=== PATIENT | female | born 1950 | race Caucasian/White ===

== ENCOUNTER → 2016-07-10 | Outpatient (CLI) | payer MEDICARE, BC ==
--- NOTE | 2016-07-10 12:27 | EST ---
DATE OF SERVICE: 07/10/2016 AGE: 65Y SEX: F HT: 60 WT: 180 lbs. Protocol Isaías: X Other: Stage: III Dur. of Exercise: 7 minutes *Heart Rate Blood Pressure *Rest: 90 Rest: 132/82 * *Max. Achieved: 130 Maximum BP: 172/82 85% PMHR: 130 100% PMHR: 153 *METS: 8.1 INDICATIONS: Palpitation. MEDICATIONS: Lisinopril, Zocor, Synthroid. Patient was exercised for a total period of 7 minutes. A peak heart rate of 130 was achieved. Maximum blood pressure of 172/82 mmHg was noted. Resting EKG shows normal sinus rhythm with normal NE interval and QRS duration and normal ST-T waves. No ST segment depression suggestive of ischemia is noted. No dysrhythmias are noted. The patient did not complain of any chest pain during the test. FINAL IMPRESSION: 1. This exercise test is not suggestive of ischemia. 2. Patient's exercise tolerance is normal. 3. No dysrhythmias were noted.
== END | disposition home or self-care (01) ==
LOC: RADNMMAIN 10:55
PROVIDERS: ATTEND Internal Medicine Cardiovascular Disease
DX: I49.40 Unspecified premature depolarization (principal)
CPT/HCPCS: 93017

== ENCOUNTER → 2016-08-30 | Outpatient (CLI) | payer MEDICARE, BC ==
[2016-08-30 10:41] LABS: ALT 39 U/L (9-52); AST 40 U/L (14-36); Alkaline Phosphatase 103 U/L (38-126); Anion Gap 9 mmol/L; Blood Urea Nitrogen 10 mg/dL (7-17); Calcium 9.5 mg/dL (8.4-10.2); Carbon Dioxide 25 mmol/L (22-30); Chloride 108 mmol/L (98-107); Cholesterol 136 mg/dL (<200); Glucose 155 mg/dL (74-99); HDL Cholesterol 49 mg/dL (40-60); Non-African American GFR(MDRD) >60 (>60 ml/min/1.73 sqM); Potassium 4.3 mmol/L (3.5-5.1); Sodium 142 mmol/L (137-145); Total Bilirubin 0.9 mg/dL (0.2-1.3); Total Protein 6.9 g/dL (6.3-8.2); Triglycerides 114 mg/dL (<150)
== END | disposition home or self-care (01) ==
LOC: LABWHC1 09:57
PROVIDERS: ATTEND Internal Medicine Endocrinology, Diabetes & Metabolism
DX: E78.5 Hyperlipidemia, unspecified (principal); E66.9 Obesity, unspecified; I10 Essential (primary) hypertension; E11.65 Type 2 diabetes mellitus with hyperglycemia; Z68.37 Body mass index [BMI] 37.0-37.9, adult
CPT/HCPCS: 36415; 80053; 80061; 82043; 84443

== ENCOUNTER → 2017-02-19 | Outpatient (CLI) | payer MEDICARE, BC ==
--- NOTE | 2017-02-24 08:38 | MM ---
Reason for exam: screening (asymptomatic). Last mammogram was performed 2 years ago. History: Patient is postmenopausal. Family history of breast cancer in maternal grandmother at age 56. Benign left mammotome panel of the left breast, January 04, 2013. Reductions of both breasts, 2000. Physical Findings: A clinical breast exam by your physician is recommended on an annual basis and results should be correlated with mammographic findings. MG 3D Screening Mammo W/Cad Bilateral CC and MLO view(s) were taken. Prior study comparison: February 27, 2016, mammogram. February 09, 2015, bilateral MG 3d screening mammo w/cad. January 21, 2014, bilateral MG screening mammo w CAD. There are scattered fibroglandular densities. Previous mammotome biopsy within the left breast. There is chronic nodularity in the right breast. No significant changes when compared with prior studies. ASSESSMENT: Negative, BI-RAD 1 RECOMMENDATION: Routine screening mammogram of both breasts in 1 year.
== END | disposition home or self-care (01) ==
LOC: RADMAMWWP 15:38
PROVIDERS: ATTEND Internal Medicine
DX: Z12.31 Encounter for screening mammogram for malignant neoplasm of breast (principal)
CPT/HCPCS: 77063; G0202

== ENCOUNTER → 2017-05-01 | Outpatient (CLI) | payer MEDICARE, BC ==
[2017-05-01 10:57] LABS: Basophils # (A) 0.1 k/uL (0-0.2); Basophils % (A) 1 %; Eosinophils # (A) 0.3 k/uL (0-0.7); Eosinophils % (A) 5 %; HCT 43.6 % (34.0-46.0); HGB 14.1 gm/dL (11.4-16.0); Lymphocytes # (A) 1.8 k/uL (1.0-4.8); Lymphocytes % (A) 29 %; MCH 28.1 pg (25.0-35.0); MCHC 32.3 g/dL (31.0-37.0); Mean Platelet Volume 6.7; Monocytes # (A) 0.3 k/uL (0-1.0); Monocytes % (A) 5 %; Neutrophils # (A) 3.6 k/uL (1.3-7.7); Neutrophils % (A) 59 %; Platelet Count 255 k/uL (150-450); RBC 5.01 m/uL (3.80-5.40); RDW 12.3 % (11.5-15.5); WBC 6.1 k/uL (3.8-10.6)
[2017-05-01 11:04] LABS: Appearance,Urine Cloudy (Clear); Bacteria,Urine Rare /hpf; Bilirubin,Urine Negative (Negative); Blood,Urine Negative (Negative); Color,Urine Yellow; Glucose,Urine (UA) Negative (Negative); Ketones,Urine Negative (Negative); Leukocyte Esterase,Urine Moderate (Negative); Mucus,Urine Moderate /hpf; Nitrite,Urine Negative (Negative); Protein,Urine Trace (Negative); RBC,Urine 3 /hpf (0-5); Specific Gravity,Urine 1.023 (1.001-1.035); Squamous Epithelial Cell,Urine 5 /hpf (0-4); WBC,Urine 3 /hpf (0-5)
[2017-05-01 11:07] LABS: ALT 34 U/L (9-52); AST 32 U/L (14-36); Albumin 4.2 g/dL (3.5-5.0); Alkaline Phosphatase 94 U/L (38-126); Anion Gap 11 mmol/L; Blood Urea Nitrogen 19 mg/dL (7-17); Carbon Dioxide 30 mmol/L (22-30); Chloride 104 mmol/L (98-107); Cholesterol 153 mg/dL (<200); Creatine Kinase 25 U/L (30-135); Glucose 174 mg/dL (74-99); HDL Cholesterol 64 mg/dL (40-60); LDL Cholesterol,Calculated 69 mg/dL (0-99); Magnesium 2.2 mg/dL (1.6-2.3); Potassium 5.5 mmol/L (3.5-5.1); Sodium 145 mmol/L (137-145); Total Bilirubin 0.5 mg/dL (0.2-1.3); Total Protein 6.9 g/dL (6.3-8.2); Triglycerides 100 mg/dL (<150); Uric Acid 6.4 mg/dL (3.7-7.4)
[2017-05-01 20:47] LABS: Hemoglobin A1C 5.9 % (4.0-6.0)
== END | disposition home or self-care (01) ==
LOC: LABWHC1 10:33
PROVIDERS: ATTEND Internal Medicine Endocrinology, Diabetes & Metabolism
DX: E78.5 Hyperlipidemia, unspecified (principal); M85.80 Other specified disorders of bone density and structure, unspecified site; I10 Essential (primary) hypertension; E11.65 Type 2 diabetes mellitus with hyperglycemia; E03.8 Other specified hypothyroidism
CPT/HCPCS: 36415; 80053; 80061; 81001; 82043; 82306; 82550; 82570; 83036; 83735; 84439; 84443; 84550; 85025

== ENCOUNTER → 2017-06-18 | Outpatient (CLI) | payer MEDICARE, BC ==
--- NOTE | 2017-06-18 10:02 | US ---
EXAMINATION TYPE: US thyroid st tissue head/neck DATE OF EXAM: 06/18/2017 COMPARISON: US 01/18/2016 CLINICAL HISTORY: E04.2 Multinodular Goiter Non Toxic. GLAND SIZE: Right Lobe: 5.7 x 4.3 x 1.7 cm Overall Parenchyma: heterogenous Left Lobe: 4.3 x 4.2 x 1.5 cm Overall Parenchyma: heterogeneous Isthmus Thickness: 0.5 cm NODULES RIGHT: # of nodules measured on right: 3 1. 0.9 X 0.5 x 0.7 cm hypoechoic solid nodule at the lower pole with well-defined margins; . This nodule is wider than tall and shows intranodular vascularity. Prior size: 0.9 x 0.5 x 0.7 cm 2. 0.5 X 0.4 x 0.6 cm hypoechoic solid nodule at the mid pole with well-defined margins; . This nod ule is wider than tall and shows intranodular vascularity. Prior size: 0.6 x 0.5 x 0.5 cm 3. 0.4 X 0.2 x 0.4 cm hypoechoic mixed nodule at the upper pole with well-defined margins; . This n odule is wider than tall and shows no intranodular vascularity. Prior size: 0.7 x 0.6 x 0.3 cm LEFT: # of nodules measured on left: 3 1. 0.7 X 0.5 x 0.6 cm hypoechoic solid nodule at the mid pole with well-defined margins; . This no dule is wider than tall and shows intranodular vascularity. Prior size: 0.6 x 0.6 x 0.5 cm 2. 0.7 X 0.5 x 0.5 cm hypoechoic mixed nodule at the upper pole with well-defined margins; . This n odule is wider than tall and shows intranodular vascularity. Prior size: 0.7 x 0.6 x 0.5 cm 3. 0.5 X 0.5 x 0.5 cm hypoechoic solid nodule at the lower pole with well-defined margins; . This n odule is wider than tall and shows intranodular vascularity. Prior size: Not previously visualized ISTHMUS: # of nodules measured in the isthmus: 1 1. 0.6 X 0.3 x 0.6 cm hypoechoic cystic nodule at the lower pole with well-defined margins; . This nodule is wider than tall and shows no intranodular vascularity. Prior size: 0.4 x 0.3x 0.7 cm Bilateral neck scanned, no evidence of lymphadenopathy. IMPRESSION: Stability in size of multiple bilateral subcentimeter thyroid nodules in a multinodular enlarged thyr oid goiter with solitary new 5 mm left thyroid nodule identified. Continued surveillance is recommend ed.
== END | disposition home or self-care (01) ==
LOC: RADUSWWP 08:00
PROVIDERS: ATTEND Internal Medicine Endocrinology, Diabetes & Metabolism
DX: E04.2 Nontoxic multinodular goiter (principal)
CPT/HCPCS: 76536

== ENCOUNTER → 2017-07-28 | Outpatient (CLI) | payer MEDICARE, BC ==
--- NOTE | 2017-07-28 10:17 | XR ---
EXAMINATION TYPE: XR chest 2V DATE OF EXAM: 07/28/2017 COMPARISON: NONE HISTORY: Cough and congestion. History of asthma. TECHNIQUE: Frontal and lateral views of the chest are obtained. FINDINGS: There is no focal air space opacity, pleural effusion, or pneumothorax seen. The cardiac silhouette size is within normal limits. The osseous structures are intact. Mild acromio clavicular arthropathy is noted. Minimal degenerative changes of the thoracic spine are seen. IMPRESSION: No acute cardiopulmonary process.
== END | disposition home or self-care (01) ==
LOC: RADXRMAIN 09:48
PROVIDERS: ATTEND Internal Medicine
DX: R05 Cough (principal)
CPT/HCPCS: 71046

== ENCOUNTER → 2017-10-13 | Outpatient (CLI) | payer MEDICARE, BC ==
--- NOTE | 2017-10-13 16:01 | XR ---
EXAMINATION TYPE: XR Hip Complete LT DATE OF EXAM: 10/13/2017 COMPARISON: NONE HISTORY: 66 year-old female left hip pain TECHNIQUE: 2 views FINDINGS: Mild degenerative spurring at the left hip. Joint spaces relatively maintained. No acute fracture, woodruff bluxation, or dislocation seen. IMPRESSION: Mild degenerative spurring at the left hip. No acute osseous abnormality seen.
== END | disposition home or self-care (01) ==
LOC: RADXRMAIN 15:07
PROVIDERS: ATTEND Internal Medicine Geriatric Medicine
DX: M76.9 Unspecified enthesopathy, lower limb, excluding foot (principal)
CPT/HCPCS: 73502

== ENCOUNTER → 2017-11-11 | Outpatient (CLI) | payer MEDICARE, BC ==
[2017-11-11 11:45] LABS: ALT 32 U/L (9-52); AST 26 U/L (14-36); Albumin 4.1 g/dL (3.5-5.0); Alkaline Phosphatase 77 U/L (38-126); Anion Gap 4 mmol/L; Blood Urea Nitrogen 14 mg/dL (7-17); Calcium 9.5 mg/dL (8.4-10.2); Carbon Dioxide 29 mmol/L (22-30); Chloride 108 mmol/L (98-107); Cholesterol 148 mg/dL (<200); Glucose 145 mg/dL (74-99); HDL Cholesterol 54 mg/dL (40-60); LDL Cholesterol,Calculated 64 mg/dL (0-99); Potassium 4.8 mmol/L (3.5-5.1); Sodium 141 mmol/L (137-145); Total Bilirubin 0.6 mg/dL (0.2-1.3); Total Protein 6.6 g/dL (6.3-8.2); Triglycerides 150 mg/dL (<150)
== END | disposition home or self-care (01) ==
LOC: LABWHC1 10:43
PROVIDERS: ATTEND Internal Medicine Endocrinology, Diabetes & Metabolism
DX: E11.65 Type 2 diabetes mellitus with hyperglycemia (principal)
CPT/HCPCS: 36415; 80053; 80061; 82043; 82570; 83036; 84443

== ENCOUNTER → 2017-12-11 | Outpatient (CLI) | payer MEDICARE, BC ==
--- NOTE | 2017-12-11 15:48 | US ---
EXAMINATION TYPE: US kidneys/renal and bladder DATE OF EXAM: 12/11/2017 COMPARISON: NONE CLINICAL HISTORY: R80.9 Albuminemia. UTI EXAM MEASUREMENTS: Right Kidney: 9.2 x4.2 x 4.3 cm Left Kidney: 9.3 x 4.4 x 4.6 cm Post Void Residual Volume: 6.4 mL Right Kidney: No hydronephrosis or masses seen possible calculi mid Left Kidney: No hydronephrosis or masses seen possible calculi mid Bladder: wnl Bilateral Jets seen: Yes Normal Post Void Residual: Yes There is no evidence for hydronephrosis at this point in time. Technologist chao do not shadowing hy perechoic foci bilaterally could reflect small nonobstructing renal calculi. No masses are identifie d. The urinary bladder is anechoic. Bilateral ureteral jets are seen. IMPRESSION: Cannot exclude small nonobstructing renal calculi bilaterally. No hydronephrosis is evident bilateral ly.
== END | disposition home or self-care (01) ==
LOC: RADUSWWP 15:11
PROVIDERS: ATTEND Internal Medicine
DX: R80.9 Proteinuria, unspecified (principal)
CPT/HCPCS: 76770

== ENCOUNTER → 2018-04-06 | Outpatient (CLI) | payer MEDICARE, BC ==
--- NOTE | 2018-04-06 08:00 | BD ---
EXAMINATION TYPE: Axial Bone Density DATE OF EXAM: 04/06/2018 CLINICAL HISTORY: Height: 60 inches Weight: 180 FRAX RISK QUESTIONS: Alcohol (3 or more units per day): no Family History (Parent hip fracture): no Glucocorticoids (More than 3mos): no (Ex: prednisone, prednisolone, methylprednisolone, dexamethasone, and hydrocortisone). History of Fracture in Adulthood: toe Secondary Osteoporosis: 1. Type 1 Diabetes: no 2. Hyperthyroidism: no 3. Menopause before 45: no 4. Malnutrition: no 5. Chronic liver disease: no Rheumatoid Arthritis: no Current Tobacco Use: no RISK FACTORS HISTORY OF: Family History of Osteoporosis: yes, mother Active: yes Diet low in dairy products/other sources of calcium: somewhat, servings a few times a week Postmenopausal woman: yes Take estrogen and/or progesterone medications: no Lost more than 2 inches in height since high school: no Frequent falls: no Poor Health: no Hyperparathyroidism: no Adrenal Insufficiency: no MEDICATIONS: Prednisone or other steroids: inhaler which patient rarely uses Thyroid Medications: yes Which medication: Synthroid How Long: about 5 years Osteoporosis Medications: no Additional Medications: blood pressures meds Additional History: type II diabetic-under control, no meds for this; goiters' EXAM MEASUREMENTS: Bone mineral densitometry was performed using the centrose System. Bone mineral density as measured about the Lumbar spine is: ----- L1-L4(G/cm2): 1.000 T Score Values are as follows: ----- L2: -2.0 ----- L3: -1.0 ----- L4: -1.1 ----- L1-L4: -1.5 Bone mineral density not previously done at this facility; previously done in physician office Bone mineral density about the R hip (g/cm2): 0.806 Bone mineral density about the L hip (g/cm2): 0.807 T Score values are as follows: -----R Neck: -1.7 -----L Neck: -1.7 -----R Total: -0.9 -----L Total: -0.6 Bone mineral density not previously done at this facility; previously done in physician office IMPRESSION: Osteopenia (T Score between -2.5 and -1) in the low back and both hips. There is slightly increased risk of fracture and the patient may be considered for treatment. Re-Screen 2-5 years. NOTE: T-SCORE=SD OF THE YOUNG ADULT MEAN.
--- NOTE | 2018-04-06 08:55 | XR ---
EXAMINATION TYPE: XR knee complete RT DATE OF EXAM: 04/06/2018 CLINICAL HISTORY: Right knee pain. TECHNIQUE: Three views of the right knee are obtained. COMPARISON: None. FINDINGS: There is no acute fracture/dislocation evident in right knee. There is mild to moderate na rrowing patellofemoral and medial tibiofemoral compartments with mild spurring. There is additional prominent spurring anterior superior patella at distal quadriceps tendon attachment. The overlying so ft tissue appears unremarkable. IMPRESSION: As above.
--- NOTE | 2018-04-06 10:38 | US ---
EXAMINATION TYPE: US thyroid st tissue head/neck DATE OF EXAM: 04/06/2018 COMPARISON: Thyroid ultrasound June 18, 2017. CLINICAL HISTORY: E04.2 MULTI GOITER NODULE. Follow up nodules. On thyroid medications. GLAND SIZE: Right Lobe: 4.4 x 1.9 x 2.0 cm Overall Parenchyma: heterogenous Left Lobe: 4.0 x 1.6 x 1.5 cm Overall Parenchyma: heterogeneous Isthmus Thickness: 0.4 cm NODULES RIGHT: # of nodules measured on right: 3 1. 0.8 X 0.7 x 0.5 cm hypoechoic solid nodule at the lower pole with well-defined margins. This no dule is wider than tall and shows intranodular vascularity. Prior size: 0.9 x 0.5 x 0.7 cm 2. 0.5 X 0.5 x 0.6 cm hypoechoic solid nodule at the mid pole with well-defined margins. This nodul e is taller than wide and shows intranodular vascularity. Prior size: 0.6 x 0.5 x 0.5 cm 3. 0.4 X 0.3 x 0.4 cm hypoechoic mixed nodule at the upper pole with well-defined margins. This nod ule is taller than wide and shows intranodular vascularity. Prior size: 0.4 x 0.2 x 0.4 cm LEFT: # of nodules measured on left: 3 1. 0.7 X 0.5 x 0.5 cm hypoechoic solid nodule at the mid pole with well-defined margins. This nodu le is wider than tall and shows intranodular vascularity. Prior size: 0.7 x 0.5 x 0.6 cm 2. 0.7 X 0.6 x 0.5 cm hypoechoic solid nodule at the upper pole with well-defined margins. This nod ule is wider than tall and shows intranodular vascularity. Prior size: 0.7 x 0.6 x 0.5 cm 3. 0.5 X 0.4 x 0.3 cm hypoechoic solid nodule at the lower pole with well-defined margins. This nod ule is wider than tall and shows no intranodular vascularity. Prior size: 0.5 x 0.5 x 0.5 cm ISTHMUS: # of nodules measured in the isthmus: 1 1. 0.6 X 0.5 x 0.3 cm hypoechoic solid nodule at the right lateral pole with well-defined margins. This nodule is wider than tall and shows no intranodular vascularity. Prior size: 0.4 x 0.3 x 0.7 cm Bilateral neck scanned, no evidence of lymphadenopathy. Redemonstration of heterogeneous normal-sized thyroid with scattered small nodules bilaterally. IMPRESSION: Overall stable findings, no new greater than 1 cm nodules identified. Findings consistent with multin odular goiter redemonstrated.
[2018-04-06 12:15] LABS: ALT 25 U/L (9-52); AST 24 U/L (14-36); Albumin 4.2 g/dL (3.5-5.0); Alkaline Phosphatase 73 U/L (38-126); Anion Gap 5 mmol/L; Blood Urea Nitrogen 16 mg/dL (7-17); Calcium 10.7 mg/dL (8.4-10.2); Carbon Dioxide 30 mmol/L (22-30); Chloride 106 mmol/L (98-107); Glucose 129 mg/dL (74-99); Potassium 4.3 mmol/L (3.5-5.1); Sodium 141 mmol/L (137-145); Total Bilirubin 0.6 mg/dL (0.2-1.3); Total Protein 7.1 g/dL (6.3-8.2)
[2018-04-06 22:42] LABS: Hemoglobin A1C 6.1 % (4.0-6.0)
--- NOTE | 2018-04-12 09:27 | MM ---
Reason for exam: screening (asymptomatic). Last mammogram was performed 1 year and 1 month ago. History: Patient is postmenopausal. Family history of breast cancer in maternal grandmother at age 56. Benign left mammotome panel of the left breast, January 04, 2013. Reductions of both breasts, 2000. MG 3D Screening Mammo W/Cad Bilateral CC and MLO view(s) were taken. Prior study comparison: February 19, 2017, bilateral MG 3d screening mammo w/cad. February 27, 2016, mammogram. There are scattered fibroglandular densities. Previous mammotome biopsy left breast. No significant changes when compared with prior studies. ASSESSMENT: Benign, BI-RAD 2 RECOMMENDATION: Routine screening mammogram of both breasts in 1 year.
== END | disposition home or self-care (01) ==
LOC: RADMAMWWP 06:52
PROVIDERS: ATTEND Internal Medicine
DX: Z12.31 Encounter for screening mammogram for malignant neoplasm of breast (principal); M85.851 Other specified disorders of bone density and structure, right thigh; M85.852 Other specified disorders of bone density and structure, left thigh; M85.88 Other specified disorders of bone density and structure, other site; E04.2 Nontoxic multinodular goiter; M17.11 Unilateral primary osteoarthritis, right knee; E11.9 Type 2 diabetes mellitus without complications
CPT/HCPCS: 36415; 76536; 77063; 77067; 77080; 80053; 82043; 82570; 83036; 84443

== ENCOUNTER → 2018-04-13 | Outpatient (CLI) | payer MEDICARE, BC ==
[2018-04-13 19:56] LABS: Albumin 4.3 g/dL (3.80-4.90); Albumin/Globulin Ratio 2.05 (1.20-2.10); Anion Gap 7.4 mmol/L (4.00-12.00); Carbon Dioxide 27.6 mmol/L (21.6-31.8); Globulin 2.1 g/dL (1.6-3.3); Potassium 4.3 mmol/L (3.5-5.5); Total Bilirubin 0.5 mg/dL (0.2-1.2); Total Protein 6.4 g/dL (6.2-8.2)
[2018-04-13 20:11] LABS: Parathyroid Hormone Intact 58.2 pg/mL (14.0-72.0)
== END | disposition home or self-care (01) ==
LOC: LABWHC1 12:48
PROVIDERS: ATTEND Internal Medicine Endocrinology, Diabetes & Metabolism
DX: E11.9 Type 2 diabetes mellitus without complications (principal); E83.52 Hypercalcemia
CPT/HCPCS: 36415; 80053; 82306; 83970

== ENCOUNTER → 2018-08-14 | Outpatient (CLI) | payer MEDICARE, BC ==
[2018-08-14 16:00] LABS: Vitamin D 25 Hydroxy 45.8 ng/mL (30.0-100.0)
[2018-08-14 16:03] LABS: Albumin 4.4 g/dL (3.80-4.90); Albumin/Globulin Ratio 2.1 (1.60-3.17); Anion Gap 8.3 mmol/L (4.00-12.00); Calcium 8.8 mg/dL (8.7-10.3); Carbon Dioxide 28.7 mmol/L (21.6-31.8); Globulin 2.1 g/dL (1.6-3.3); Potassium 2.9 mmol/L (3.5-5.5); Total Bilirubin 0.7 mg/dL (0.3-1.2); Total Protein 6.5 g/dL (6.2-8.2)
[2018-08-14 16:35] LABS: Parathyroid Hormone Intact 116.2 pg/mL (14.0-72.0)
== END | disposition home or self-care (01) ==
LOC: LABWHC1 10:11
PROVIDERS: ATTEND Internal Medicine Endocrinology, Diabetes & Metabolism
DX: E83.52 Hypercalcemia (principal); E11.9 Type 2 diabetes mellitus without complications
CPT/HCPCS: 36415; 80053; 82306; 83970

== ENCOUNTER → 2018-11-24 | Outpatient (CLI) | payer MEDICARE, BC ==
[2018-11-24 15:41] LABS: African American GFR (CKD) 86.6 (60.0-200.0); Albumin 4.3 g/dL (3.80-4.90); Albumin/Globulin Ratio 2.15 (1.60-3.17); Anion Gap 7.7 mmol/L (4.00-12.00); BUN/Creat Ratio 18.75 Ratio (12.00-20.00); Calcium 9.7 mg/dL (8.7-10.3); Carbon Dioxide 28.3 mmol/L (21.6-31.8); Chol/HDL Ratio 2.76; LDL Cholesterol,Calculated 77.8 mg/dL (0.0-131.0); Potassium 4.3 mmol/L (3.5-5.5); Total Bilirubin 0.5 mg/dL (0.2-1.2); Total Protein 6.3 g/dL (6.2-8.2); VLDL Calculation 24.2 mg/dL (5.00-40.00)
== END | disposition home or self-care (01) ==
LOC: LABWHC1 09:23
PROVIDERS: ATTEND Internal Medicine Endocrinology, Diabetes & Metabolism
DX: E11.9 Type 2 diabetes mellitus without complications (principal)
CPT/HCPCS: 36415; 80053; 80061; 82043; 82570; 83970; 84443

== ENCOUNTER → 2018-12-22 | Outpatient (CLI) | payer MEDICARE, BC ==
--- NOTE | 2018-12-22 16:29 | XR ---
EXAMINATION TYPE: XR KUB DATE OF EXAM: 12/22/2018 COMPARISON: NONE HISTORY: Urinary frequency. Abdominal pain. TECHNIQUE: Single supine abdominal radiograph was obtained FINDINGS: There is a mild levoscoliosis of the visualized thoracolumbar spine. Diffuse osseous demine ralization is seen. Density in the left lateral aspect of the urinary bladder may be located within s tool 3 multiple phleboliths are seen within the pelvis. No suspicious calcifications overlying the re nal shadows. No dilated large or small bowel. IMPRESSION: Density just inferior to the sacrum overlying the left lateral urinary bladder medially l ocated within bowel although given the patient's urinary frequency CT urogram could assess for urinar y bladder mass.
== END | disposition home or self-care (01) ==
LOC: RADXRMAIN 10:23
PROVIDERS: ATTEND Internal Medicine
DX: M89.8X8 Other specified disorders of bone, other site (principal); R35.0 Frequency of micturition
CPT/HCPCS: 74018

== ENCOUNTER → 2019-01-22 | Outpatient (CLI) | payer MEDICARE, BC ==
[2019-01-22 16:50] LABS: African American GFR (CKD) 86.6 (60.0-200.0); Albumin 4.3 g/dL (3.80-4.90); Albumin/Globulin Ratio 2.15 (1.60-3.17); Anion Gap 7.2 mmol/L (4.00-12.00); BUN/Creat Ratio 18.75 Ratio (12.00-20.00); Calcium 9.1 mg/dL (8.7-10.3); Carbon Dioxide 29.8 mmol/L (21.6-31.8); Chol/HDL Ratio 3.32; LDL Cholesterol,Calculated 67.6 mg/dL (0.0-131.0); Potassium 3.7 mmol/L (3.5-5.5); Total Bilirubin 0.6 mg/dL (0.3-1.2); Total Protein 6.3 g/dL (6.2-8.2); VLDL Calculation 41.4 mg/dL (5.00-40.00)
[2019-01-22 18:37] LABS: Hemoglobin A1C 6.8 % (4.0-6.0)
== END | disposition home or self-care (01) ==
LOC: LABWHC1 08:37
PROVIDERS: ATTEND Internal Medicine Endocrinology, Diabetes & Metabolism
DX: E11.9 Type 2 diabetes mellitus without complications (principal); E21.0 Primary hyperparathyroidism
CPT/HCPCS: 36415; 80053; 80061; 82043; 82306; 82570; 83036; 83970; 84443

== ENCOUNTER → 2019-04-01 | Outpatient (CLI) | payer MEDICARE, BC ==
[2019-04-01 17:49] LABS: Potassium 4.4 mmol/L (3.5-5.5)
== END | disposition home or self-care (01) ==
LOC: LABWHC1 10:20
PROVIDERS: ATTEND Internal Medicine
DX: E87.6 Hypokalemia (principal)
CPT/HCPCS: 36415; 83735; 84132

== ENCOUNTER → 2019-04-21 | Outpatient (CLI) | payer MEDICARE, BC ==
--- NOTE | 2019-04-22 12:23 | MM ---
Reason for exam: screening (asymptomatic). Last mammogram was performed 1 year ago. History: Patient is postmenopausal. Family history of breast cancer in maternal grandmother at age 56. Benign left mammotome panel of the left breast, January 04, 2013. Reductions of both breasts, 2000. Physical Findings: A clinical breast exam by your physician is recommended on an annual basis and results should be correlated with mammographic findings. MG 3D Screening Mammo W/Cad Bilateral CC and MLO view(s) were taken. Prior study comparison: April 06, 2018, bilateral MG 3d screening mammo w/cad. February 19, 2017, bilateral MG 3d screening mammo w/cad. There are scattered fibroglandular densities. Finding: There is an intermediate concern, suspicious 6 mm high density mass in the right breast. ASSESSMENT: Incomplete: need additional imaging evaluation, BI-RAD 0 RECOMMENDATION: Ultrasound of the right breast. [facility] will attempt to contact patient to return for ultrasound.
== END | disposition home or self-care (01) ==
LOC: RADMAMWWP 07:25
PROVIDERS: ATTEND Internal Medicine Geriatric Medicine
DX: Z12.31 Encounter for screening mammogram for malignant neoplasm of breast (principal)
CPT/HCPCS: 77063; 77067

== ENCOUNTER → 2019-05-04 | Outpatient (CLI) | payer MEDICARE, BC ==
--- NOTE | 2019-05-04 10:13 | USB ---
Reason for exam: additional evaluation requested from abnormal screening. History: Patient is postmenopausal. Family history of breast cancer in maternal grandmother at age 56. Benign left mammotome panel of the left breast, January 04, 2013. Reductions of both breasts, 2000. Physical Findings: Nurse did not find any significant physical abnormalities on exam. US Breast Workup RT Right complete breast ultrasound includes all four quadrants, the retroareolar region and axilla. Finding demonstrates a 0.5 x 0.4 x 0.5cm hypoechoic lesion at 4 o'clock, likely cystic, located away from the mammographic finding. 6 month follow up recommended. These results were verbally communicated with the patient and result sheet given to the patient on 05/04/19. ASSESSMENT: Incomplete: need additional imaging evaluation, BI-RAD 0 RECOMMENDATION: Special view mammogram of the right breast. (3D)
--- NOTE | 2019-05-04 10:15 | MM ---
Reason for exam: additional evaluation requested from abnormal screening. Last mammogram was performed less than 1 month ago. History: Patient is postmenopausal. Family history of breast cancer in maternal grandmother at age 56. Benign left mammotome panel of the left breast, January 04, 2013. Reductions of both breasts, 2000. MG 3D Work Up W/Cad RT Spot compression CC and ML view(s) were taken of the right breast. Prior study comparison: April 21, 2019, bilateral MG 3d screening mammo w/cad. April 06, 2018, bilateral MG 3d screening mammo w/cad. There are scattered fibroglandular densities. Circumscribed 7 o'clock oval mass becomes less defined on true lateral. As it is not seen on ultrasound, 6 month follow up recommended. Small 12 o'clock low density nodule on lateral and spot CC views, probably cyst. 6 month follow up. These results were verbally communicated with the patient and result sheet given to the patient on 05/04/19. ASSESSMENT: Probably benign, BI-RAD 3 RECOMMENDATION: Follow-up diagnostic mammogram of the right breast in 6 months.
== END | disposition home or self-care (01) ==
LOC: RADUSWWP 06:43
PROVIDERS: ATTEND Internal Medicine Geriatric Medicine
DX: R92.8 Other abnormal and inconclusive findings on diagnostic imaging of breast (principal)
CPT/HCPCS: 77065; 76641; G0279; 77061

== ENCOUNTER 2019-05-31 15:13 | Emergency (ER) | payer MEDICARE, BC ==
--- NOTE | 2019-05-31 15:45 | ED ---
General Adult HPI - General Chief complaint: Neuro Symptoms/Deficit Stated complaint: sent by /evelia stroke Time Seen by Provider: 05/31/19 15:26 Source: patient, RN notes reviewed, old records reviewed Mode of arrival: ambulatory Limitations: no limitations - History of Present Illness Initial comments: 68-year-old female presenting for evaluation of confusion, memory impairment. Patient is accompanied by her , history is obtained from both the patient and her . She was at the 0 on Friday which was 2 days prior to arrival. She had some confusion and difficulty remembering the sequence of events throughout the day and has difficulty remembering even being at the [facility]. She denied any trouble remembering events on Friday. She denies headache. She denies any focal numbness or weakness. Denies chest pain or dyspnea. Denies abdominal pain nausea vomiting. Denies dysuria or hematuria. Denies fever or chills. She herself has no complaints. She was seen by her deputy building guard this morning and was recommended to present to the emergency department for evaluation. She is alert and oriented with no complaints time my evaluation. - Related Data Home Medications Medication Instructions Recorded Confirmed Levothyroxine Sodium [Synthroid] 100 mcg PO DAILY 06/05/15 11/17/15 amLODIPine [Norvasc] 5 mg PO PC-LUNCH 06/05/15 11/17/15 Baclofen [Lioresal] 5 mg PO BID PRN 06/16/15 11/17/15 Cholecalciferol [Vitamin D3] 2,000 unit PO DAILY 06/16/15 11/17/15 Doxylamine Succinate [Unisom] 25 mg PO HS PRN 06/16/15 11/17/15 Ubidecarenone [Co Q-10] 100 mg PO DAILY 06/16/15 11/17/15 Simvastatin [Zocor] 20 mg PO HS 08/01/15 11/17/15 Propranolol [Inderal] 10 mg PO DAILY 10/25/15 11/17/15 Brimonidine Tartrate [Alphagan P 1 drops BOTH EYES BID 11/17/15 11/17/15 0.2% Ophth Soln] Claudia Pomroy Digestive Powder 2 tbsp PO DAILY 11/17/15 11/17/15 Latanoprost Ophth [Xalatan 0.005%] 1 drops BOTH EYES HS 11/17/15 11/17/15 Allergies Allergy/AdvReac Type Severity Reaction Status Date / Time Penicillins Allergy Unknown Verified 05/31/19 15:22 Childhood Review of Systems ROS Statement: Those systems with pertinent positive or pertinent negative responses have been documented in the HPI. ROS Other: All systems not noted in ROS Statement are negative. Past Medical History Past Medical History: Mitral Valve Prolapse (MVP) Additional Past Medical History / Comment(s): HX ANEMIA. Kidney Stone. CHRONIC DIARRHEA. Arrhythmia "tachycardia," SEEING NEW CV DR AT , RECEIVING RX CHANGE TODAY AND WILL CALL W/ INFO. Pain Lower Middle Back. History of Any Multi-Drug Resistant Organisms: C-DIFF Date of last positivie culture/infection: 2005 MDRO Source:: stool Past Surgical History: Section, Cholecystectomy, Hysterectomy Additional Past Surgical History / Comment(s): Kidney Stone Surgery. Past Anesthesia/Blood Transfusion Reactions: Previous Problems w/ Anesthesia, Motion Sickness Additional Past Anesthesia/Blood Transfusion Reaction / Comment(s): AFTER HYSTERECTOMY, ENDED UP IN ICU. Past Psychological History: No Psychological Hx Reported Smoking Status: Never smoker Past Alcohol Use History: Rare Past Drug Use History: None Reported - Past Family History Father Family Medical History: Coronary Artery Disease (CAD), Pulmonary Embolus Mother Family Medical History: No Reported History General Exam Limitations: no limitations General appearance: alert, in no apparent distress Head exam: Present: atraumatic, normocephalic Eye exam: Present: normal appearance, PERRL ENT exam: Present: normal exam Neck exam: Present: normal inspection. Absent: tenderness Respiratory exam: Present: normal lung sounds bilaterally. Absent: respiratory distress, wheezes Cardiovascular Exam: Present: regular rate, normal rhythm GI/Abdominal exam: Present: soft. Absent: distended, tenderness, guarding Extremities exam: Present: normal inspection, normal capillary refill. Absent: pedal edema Neurological exam: Present: alert, oriented X3, CN II-XII intact, normal gait, other (No ataxia). Absent: motor sensory deficit Psychiatric exam: Present: normal affect, normal mood Skin exam: Present: warm, dry, intact. Absent: cyanosis, diaphoretic Course Vital Signs 05/31/19 15:18 Temperature 98.2 F Pulse Rate 75 Respiratory 18 Rate Blood Pressure 135/78 O2 Sat by Pulse 98 Oximetry EKG Findings - EKG Comments: EKG Findings:: EKG: Normal sinus rhythm, low voltage, rate of 64, KS interval 200, QRS duration 72, QTC 410, no ST segment elevation. Medical Decision Making - Medical Decision Making 5-year-old female presenting with a resolved episode of confusion and amnesia. Patient well-appearing with stable vitals, nonfocal neurologic exam. She is alert and oriented 4. She is ambulatory, laughing, no acute distress. Workup in the emergency department reveals normal CBC, normal CMP, urinalysis negative for infection. Head CT showed chronic small vessel ischemic changes and atrophy with no acute intracranial process. Chest x-ray negative for acute cardiopulmonary disease. Patient remains asymptomatic while in the emergency department. I discussed case with her primary care physician Dr. Dennison, who will evaluate the patient within the next several days and is agreeable with continued outpatient follow-up. Patient is eager for discharge. She will return with any new symptoms including headache, focal numbness or weakness, any confusion or significant change. - Lab Data Result diagrams: 05/31/19 15:52 05/31/19 15:52 Lab Results 05/31/19 05/31/19 05/31/19 Range/Units 15:52 15:52 15:52 WBC 7.6 (3.8-10.6) k/uL RBC 5.11 (3.80-5.40) m/uL Hgb 15.0 (11.4-16.0) gm/dL Hct 43.6 (34.0-46.0) % MCV 85.3 (80.0-100.0) fL MCH 29.3 (25.0-35.0) pg MCHC 34.4 (31.0-37.0) g/dL RDW 12.9 (11.5-15.5) % Plt Count 229 (150-450) k/uL Neutrophils % 57 % Lymphocytes % 30 % Monocytes % 6 % Eosinophils % 4 % Basophils % 1 % Neutrophils # 4.3 (1.3-7.7) k/uL Lymphocytes # 2.2 (1.0-4.8) k/uL Monocytes # 0.5 (0-1.0) k/uL Eosinophils # 0.3 (0-0.7) k/uL Basophils # 0.1 (0-0.2) k/uL PT 10.4 (9.0-12.0) sec INR 1.0 (<1.2) APTT 23.5 (22.0-30.0) sec Sodium (137-145) mmol/L Potassium (3.5-5.1) mmol/L Chloride (98-107) mmol/L Carbon Dioxide (22-30) mmol/L Anion Gap mmol/L BUN (7-17) mg/dL Creatinine (0.52-1.04) mg/dL Est GFR (CKD-EPI)AfAm (>60 ml/min/1.73 sqM) Est GFR (CKD-EPI)NonAf (>60 ml/min/1.73 sqM) Glucose (74-99) mg/dL Calcium (8.4-10.2) mg/dL Total Bilirubin (0.2-1.3) mg/dL AST (14-36) U/L ALT (4-34) U/L Alkaline Phosphatase (38-126) U/L Troponin I (0.000-0.034) ng/mL Total Protein (6.3-8.2) g/dL Albumin (3.5-5.0) g/dL Urine Color Yellow Urine Appearance Cloudy H (Clear) Urine pH 5.0 (5.0-8.0) Ur Specific Beyer 1.017 (1.001-1.035) Urine Protein Negative (Negative) Urine Glucose (UA) Negative (Negative) Urine Ketones Negative (Negative) Urine Blood Negative (Negative) Urine Nitrite Negative (Negative) Urine Bilirubin Negative (Negative) Urine Urobilinogen <2.0 (<2.0) mg/dL Ur Leukocyte Esterase Small H (Negative) Urine RBC <1 (0-5) /hpf Urine WBC 6 H (0-5) /hpf Ur Squamous Epith Cells 1 (0-4) /hpf Urine Bacteria Occasional H (None) /hpf Urine Mucus Rare H (None) /hpf 05/31/19 05/31/19 Range/Units 15:52 15:52 WBC (3.8-10.6) k/uL RBC (3.80-5.40) m/uL Hgb (11.4-16.0) gm/dL Hct (34.0-46.0) % MCV (80.0-100.0) fL MCH (25.0-35.0) pg MCHC (31.0-37.0) g/dL RDW (11.5-15.5) % Plt Count (150-450) k/uL Neutrophils % % Lymphocytes % % Monocytes % % Eosinophils % % Basophils % % Neutrophils # (1.3-7.7) k/uL Lymphocytes # (1.0-4.8) k/uL Monocytes # (0-1.0) k/uL Eosinophils # (0-0.7) k/uL Basophils # (0-0.2) k/uL PT (9.0-12.0) sec INR (<1.2) APTT (22.0-30.0) sec Sodium 138 (137-145) mmol/L Potassium 3.4 L (3.5-5.1) mmol/L Chloride 101 (98-107) mmol/L Carbon Dioxide 26 (22-30) mmol/L Anion Gap 11 mmol/L BUN 16 (7-17) mg/dL Creatinine 0.58 (0.52-1.04) mg/dL Est GFR (CKD-EPI)AfAm >90 (>60 ml/min/1.73 sqM) Est GFR (CKD-EPI)NonAf >90 (>60 ml/min/1.73 sqM) Glucose 160 H (74-99) mg/dL Calcium 9.9 (8.4-10.2) mg/dL Total Bilirubin 0.5 (0.2-1.3) mg/dL AST 37 H (14-36) U/L ALT 24 (4-34) U/L Alkaline Phosphatase 46 (38-126) U/L Troponin I <0.012 (0.000-0.034) ng/mL Total Protein 7.5 (6.3-8.2) g/dL Albumin 4.4 (3.5-5.0) g/dL Urine Color Urine Appearance (Clear) Urine pH (5.0-8.0) Ur Specific Beyer (1.001-1.035) Urine Protein (Negative) Urine Glucose (UA) (Negative) Urine Ketones (Negative) Urine Blood (Negative) Urine Nitrite (Negative) Urine Bilirubin (Negative) Urine Urobilinogen (<2.0) mg/dL Ur Leukocyte Esterase (Negative) Urine RBC (0-5) /hpf Urine WBC (0-5) /hpf Ur Squamous Epith Cells (0-4) /hpf Urine Bacteria (None) /hpf Urine Mucus (None) /hpf Disposition Clinical Impression: Amnesia memory loss Disposition: HOME SELF-CARE Condition: Fair Instructions (If sedation given, give patient instructions): Altered Mental Status (ED) Is patient prescribed a controlled substance at d/c from ED?: No Referrals: Gilson Dennison MD [Primary Care Provider] - 1-2 days Time of Disposition: 17:09
[2019-05-31 16:01] LABS: Basophils # (A) 0.1 k/uL (0-0.2); Basophils % (A) 1 %; Eosinophils # (A) 0.3 k/uL (0-0.7); Eosinophils % (A) 4 %; HCT 43.6 % (34.0-46.0); Lymphocytes # (A) 2.2 k/uL (1.0-4.8); Lymphocytes % (A) 30 %; MCH 29.3 pg (25.0-35.0); MCHC 34.4 g/dL (31.0-37.0); MCV 85.3 fL (80.0-100.0); Monocytes # (A) 0.5 k/uL (0-1.0); Monocytes % (A) 6 %; Neutrophils # (A) 4.3 k/uL (1.3-7.7); Neutrophils % (A) 57 %; Platelet Count 229 k/uL (150-450); RBC 5.11 m/uL (3.80-5.40); RDW 12.9 % (11.5-15.5); WBC 7.6 k/uL (3.8-10.6)
[2019-05-31 16:11] LABS: ALT 24 U/L (4-34); AST 37 U/L (14-36); African American GFR (CKD) >90 (>60 ml/min/1.73 sqM); Albumin 4.4 g/dL (3.5-5.0); Alkaline Phosphatase 46 U/L (38-126); Anion Gap 11 mmol/L; Blood Urea Nitrogen 16 mg/dL (7-17); Calcium 9.9 mg/dL (8.4-10.2); Carbon Dioxide 26 mmol/L (22-30); Chloride 101 mmol/L (98-107); Glucose 160 mg/dL (74-99); Non-African American GFR(CKD) >90 (>60 ml/min/1.73 sqM); Potassium 3.4 mmol/L (3.5-5.1); Sodium 138 mmol/L (137-145); Total Bilirubin 0.5 mg/dL (0.2-1.3); Total Protein 7.5 g/dL (6.3-8.2)
[2019-05-31 16:12] LABS: Appearance,Urine Cloudy (Clear); Bacteria,Urine Occasional /hpf; Bilirubin,Urine Negative (Negative); Blood,Urine Negative (Negative); Color,Urine Yellow; Glucose,Urine (UA) Negative (Negative); Ketones,Urine Negative (Negative); Leukocyte Esterase,Urine Small (Negative); Mucus,Urine Rare /hpf; Nitrite,Urine Negative (Negative); Protein,Urine Negative (Negative); RBC,Urine <1 /hpf (0-5); Specific Gravity,Urine 1.017 (1.001-1.035); Squamous Epithelial Cell,Urine 1 /hpf (0-4); Urobilinogen,Urine <2.0 mg/dL (<2.0); WBC,Urine 6 /hpf (0-5)
[2019-05-31 16:20] LABS: Partial Thromboplastin Time 23.5 sec (22.0-30.0); Prothrombin Time 10.4 sec (9.0-12.0)
--- NOTE | 2019-05-31 16:21 | CT ---
EXAMINATION TYPE: CT brain wo con DATE OF EXAM: 05/31/2019 HISTORY: Memory loss. Acute stroke suspected. Acute neuro deficit. CT DLP: 1090.4 mGycm. Automated Exposure Control for Dose Reduction was Utilized. TECHNIQUE: CT scan of the head is performed without contrast. COMPARISON: None. FINDINGS: There is no acute intracranial hemorrhage or midline shift identified. There is diffuse v entricular and sulcal prominence consistent with diffuse age-related cerebral atrophy. There is low- attenuation in the periventricular white matter consistent with chronic small vessel ischemic change. The globes are intact and the visualized sinuses are clear. IMPRESSION: No acute intracranial hemorrhage or midline shift. There is mild diffuse age-related ce rebral atrophy and chronic small vessel ischemic change noted.
--- NOTE | 2019-05-31 16:31 | XR ---
EXAMINATION TYPE: XR chest 2V DATE OF EXAM: 05/31/2019 COMPARISON: 07/01/2017 HISTORY: Altered mental status TECHNIQUE: FINDINGS: There is no heart failure nor confluent pneumonic infiltrate. Costophrenic angles are clear . Bony thorax is intact. There are chest leads. IMPRESSION: No cardiopulmonary disease. Normal heart. No change.
[2019-05-31 17:23] VITALS: BP 125/68; PULSE 53; RESP 16; TEMP 97.4
== END 2019-05-31 17:26 | disposition home or self-care (01) ==
LOC: EC 15:13
DX: G31.9 Degenerative disease of nervous system, unspecified (principal); I34.1 Nonrheumatic mitral (valve) prolapse; Z79.890 Hormone replacement therapy; Z79.899 Other long term (current) drug therapy; Z88.0 Allergy status to penicillin
CPT/HCPCS: 36415; 70450; 71046; 80053; 81001; 84484; 85025; 85610; 85730; 93005; 99285

== ENCOUNTER → 2019-06-11 | Outpatient (CLI) | payer MEDICARE, BC ==
--- NOTE | 2019-06-12 08:01 | ECHOF ---
Referral Reason:G45.9 TIA MEASUREMENTS -------- HEIGHT: 152.4 cm WEIGHT: 74.8 kg BP: RVIDd: 1.9 cm (< 3.3) IVSd: 1.5 cm (0.6 - 1.1) LVIDd: 3.0 cm (3.9 - 5.3) LVPWd: 1.3 cm (0.6 - 1.1) IVSs: 1.7 cm LVIDs: 3.8 cm LVPWs: 1.8 cm LA Diam: 3.9 cm (2.7 - 3.8) LAESV Index (A-L): 24.37 ml/m Ao Diam: 3.2 cm (2.0 - 3.7) AV Cusp: 2.0 cm (1.5 - 2.6) MV EXCURSION: 18.048 mm (> 18.000) MV EF SLOPE: 94 mm/s (70 - 150) EPSS: 1.3 cm MV E Cheko: 0.45 m/s MV DecT: 265 ms MV A Cheko: 0.66 m/s MV E/A Ratio: 0.68 RAP: 5.00 mmHg RVSP: 12.51 mmHg FINDINGS -------- Sinus rhythm. This was a technically good study. The left ventricular size is normal. There is moderate concentric left ventricular hypertrophy. O verall left ventricular systolic function is normal with, an EF between 55 - 60 %. The diastolic fi lling pattern is normal for the age of the patient 8.97. The right ventricle is normal in size. The left atrial size is normal. Normal LA size by volume 22+/-6 ml/m2. The right atrial size is normal. There is mild aortic valve sclerosis. There is no evidence of aortic regurgitation. Mild mitral annular calcification present. Mild mitral regurgitation is present. Mild tricuspid regurgitation present. Right ventricular systolic pressure is normal at < 35 mmHg. There is no evidence of pulmonary hypertension. There is no pulmonic regurgitation present. The aortic root size is normal. There is no pericardial effusion. CONCLUSIONS -------- 1. Sinus rhythm. 2. This was a technically good study. 3. The left ventricular size is normal. 4. There is moderate concentric left ventricular hypertrophy. 5. Overall left ventricular systolic function is normal with, an EF between 55 - 60 %. 6. The diastolic filling pattern is normal for the age of the patient 8.97 7. The right ventricle is normal in size. 8. The left atrial size is normal. 9. Normal LA size by volume 22+/-6 ml/m2. 10. The right atrial size is normal. 11. There is mild aortic valve sclerosis. 12. Mild mitral annular calcification present. 13. Mild mitral regurgitation is present. 14. Mild tricuspid regurgitation present. 15. Right ventricular systolic pressure is normal at < 35 mmHg. 16. There is no evidence of pulmonary hypertension. 17. There is no pulmonic regurgitation present. 18. The aortic root size is normal. 19. There is no pericardial effusion. FABRICATION INSPECTOR: Harriet Ashford RDCS
== END | disposition home or self-care (01) ==
LOC: RADECHMAIN 12:34
PROVIDERS: ATTEND Internal Medicine
DX: I08.3 Combined rheumatic disorders of mitral, aortic and tricuspid valves (principal); G45.9 Transient cerebral ischemic attack, unspecified
CPT/HCPCS: 93306

== ENCOUNTER → 2019-11-05 | Outpatient (CLI) | payer MEDICARE, BC ==
--- NOTE | 2019-11-09 12:15 | MM ---
Reason for exam: follow-up at short interval from prior study. Last mammogram was performed 6 months ago. History: Patient is postmenopausal. Family history of breast cancer in maternal grandmother at age 56. Benign left mammotome panel of the left breast, January 04, 2013. Reductions of both breasts, 2000. Physical Findings: Nurse did not find any significant physical abnormalities on exam. MG 3D Diag Mammo W/Cad RT CC and MLO view(s) were taken of the right breast. Prior study comparison: May 04, 2019, right breast MG 3d work up w/cad RT. April 21, 2019, bilateral MG 3d screening mammo w/cad. There are scattered fibroglandular densities. Finding: There is a 5 mm oval mass in the outer quadrant of the right breast. Benign calcifications. There is a chronic nodularity in the right breast. Calcified 8mm nodule lower right breast, stable from 2016, most likely fibroadenoma. These results were verbally communicated with the patient and result sheet given to the patient on 11/05/19. ASSESSMENT: Incomplete: need additional imaging evaluation, BI-RAD 0 RECOMMENDATION: Ultrasound of the right breast.
--- NOTE | 2019-11-09 12:17 | USB ---
Reason for exam: additional evaluation requested from abnormal screening. History: Patient is postmenopausal. Family history of breast cancer in maternal grandmother at age 56. Benign left mammotome panel of the left breast, January 04, 2013. Reductions of both breasts, 2000. US Breast Limited RT Right limited breast ultrasound including focal area of concern, retroareolar and axilla demonstrates a 5 x 3 x 4mm lobular, cystic lesion at 11 o'clock. These results were verbally communicated with the patient and result sheet given to the patient on 11/05/19. ASSESSMENT: Suspicious, BI-RAD 4 RECOMMENDATION: Ultrasound core biopsy of the right breast. Called Dr. Dennison's office with mammographic findings and has scheduled an appointment for the patient with Dr. Pearl. Biopsy scheduled for 11/18/19 at 1:00. PRELIMINARY REPORT CALLED AND FAXED TO DR. PEARL ON 11/05/19.
== END | disposition home or self-care (01) ==
LOC: RADMAMWWP 10:41
PROVIDERS: ATTEND Internal Medicine
DX: R92.8 Other abnormal and inconclusive findings on diagnostic imaging of breast (principal)
CPT/HCPCS: 77065; 76642; G0279; 77061

== ENCOUNTER → 2019-11-18 | Day surgery (SDC) | payer MEDICARE, BC ==
[2019-11-18 12:27] VITALS: RESP 16
[2019-11-18 13:40] VITALS: BP 113/63; PULSE 59; TEMP 97.6
--- NOTE | 2019-11-18 13:58 | USB ---
ULTRASOUND GUIDED FNA THYROID BIOPSY: CLINICAL HISTORY: Abnormal ultrasound FINDINGS: The procedure was explained to the patient. The risks, complications, benefits and alternatives were discussed and any questions were answered. Informed consent was obtained. Patient was placed supine on the ultrasound table and prepped and draped in the usual sterile fashion. Utilizing a 20 gauge needle, a single pass was made into the requested lesion noted by ultrasound. This appears to have disappeared post aspiration. No other suspicious areas are seen by ultrasound. There are additional small simple appearing cysts noted. This likely corresponds to the well-circumscribed 4 mm nodule seen by mammogram. Post procedural mammogram demonstrates placement of a clip. Patient was stable throughout the procedure. Pathology is pending. All elements of maximal barrier technique were utilized. IMPRESSION: 1. Successful ultrasound guided FNA right breast lesion. The nodule seen by recent ultrasound has disappeared post aspiration and likely represented a simple cyst. Realtime scanning demonstrated additional simple appearing cyst with no other suspicious nodule identified. Pathology Results: Benign RIGHT BREAST CYST AT ELEVEN O'CLOCK POSITION, ASPIRATION: Blood, inflammatory cells, and rare benign epithelial cells consistent with breast duct epithelium. Cells diagnostic of mass lesion or neoplasm are not seen. Recommendation Follow up mammogram of the right breast in 6 months. MTDD
--- NOTE | 2019-11-18 14:12 | MM ---
Reason for exam: additional evaluation requested from abnormal screening. Last mammogram was performed less than 1 month ago. History: Patient is postmenopausal. Family history of breast cancer in maternal grandmother at age 56. Benign left mammotome panel of the left breast, January 04, 2013. Reductions of both breasts, 2000. MG Diagnostic Mammo RT Wo CAD CC and MLO view(s) were taken of the right breast. Prior study comparison: November 05, 2019, right breast MG 3d diag mammo w/cad RT. May 04, 2019, right breast MG 3d work up w/cad RT. ASSESSMENT: Post procedure mammogram for marker placement RECOMMENDATION: Ultrasound of the right breast in 6 months. PENDING PATHOLOGY RESULTS.
== END ==
LOC: RADUSWWP 11:45
PROVIDERS: ATTEND Student in an Organized Health Care Education/Training Program
DX: N60.01 Solitary cyst of right breast (principal); Z78.0 Asymptomatic menopausal state; Z80.3 Family history of malignant neoplasm of breast; Z98.890 Other specified postprocedural states
CPT/HCPCS: 88108; 88305; 77065; 76942; 19000; A4648; J2001

== ENCOUNTER → 2019-11-18 | Outpatient (CLI) | payer MEDICARE, BC ==
[2019-11-18 18:38] LABS: Albumin 4.4 g/dL (3.80-4.90); Albumin/Globulin Ratio 1.83 (1.60-3.17); BUN/Creat Ratio 17.5 Ratio (12.00-20.00); Calcium 9.7 mg/dL (8.7-10.3); Chol/HDL Ratio 2.94; Globulin 2.4 g/dL (1.6-3.3); Non-African American GFR(CKD) 74.2 (60.0-200.0); Potassium 3.7 mmol/L (3.5-5.5); Total Bilirubin 0.7 mg/dL (0.3-1.2); Total Protein 6.8 g/dL (6.2-8.2)
[2019-11-18 19:46] LABS: Microalbumin Creatinine Ratio <30 mg/g Creat (0-30); Urine Creatinine 67.1 mg/dL
== END | disposition home or self-care (01) ==
LOC: LABWHC1 13:43
PROVIDERS: ATTEND Internal Medicine Endocrinology, Diabetes & Metabolism
DX: E11.9 Type 2 diabetes mellitus without complications (principal); E03.8 Other specified hypothyroidism; E21.0 Primary hyperparathyroidism
CPT/HCPCS: 36415; 80053; 80061; 82043; 82306; 82570; 83036; 83970; 84443

== ENCOUNTER → 2020-07-03 | Outpatient (CLI) | payer MEDICARE, BC ==
--- NOTE | 2020-07-04 10:46 | MM ---
Reason for exam: screening (asymptomatic). Last mammogram was performed 8 months ago. History: Patient is postmenopausal. Family history of breast cancer in maternal grandmother at age 56. Benign US breast aspiration single RT of the right breast, November 18, 2019. Benign left mammotome panel of the left breast, January 04, 2013. Reductions of both breasts, 2000. Physical Findings: A clinical breast exam by your physician is recommended on an annual basis and results should be correlated with mammographic findings. MG 3D Screening Mammo W/Cad Bilateral CC and MLO view(s) were taken. Prior study comparison: November 18, 2019, right breast MG diagnostic mammo RT wo CAD. November 05, 2019, right breast MG 3d diag mammo w/cad RT. There are scattered fibroglandular densities. Stable benign calcifications. Previous mammotome biopsy in the right breast. No significant changes when compared with prior studies. ASSESSMENT: Benign, BI-RAD 2 RECOMMENDATION: Routine screening mammogram of both breasts in 1 year.
== END | disposition home or self-care (01) ==
LOC: RADMAMWWP 07:47
PROVIDERS: ATTEND Internal Medicine
DX: Z12.31 Encounter for screening mammogram for malignant neoplasm of breast (principal); Z78.0 Asymptomatic menopausal state; Z80.3 Family history of malignant neoplasm of breast
CPT/HCPCS: 77063; 77067

== ENCOUNTER → 2021-03-27 | Outpatient (CLI) | payer MEDICARE, BC ==
[2021-03-27 18:19] LABS: African American GFR (CKD) 94.3 (60.0-200.0); Albumin 4.2 g/dL (3.8-4.9); Albumin/Globulin Ratio 1.75 (1.60-3.17); Anion Gap 11.3 mmol/L (10.00-18.00); BUN/Creat Ratio 20.49 Ratio (12.00-20.00); Blood Urea Nitrogen 15.1 mg/dL (9.0-27.0); Calcium 9.5 mg/dL (8.7-10.3); Carbon Dioxide 27.9 mmol/L (20.0-27.5); Globulin 2.4 g/dL (1.6-3.3); Non-African American GFR(CKD) 81.3 (60.0-200.0); Potassium 3.5 mmol/L (3.5-5.5); Total Bilirubin 0.4 mg/dL (0.30-1.20); Total Protein 6.6 g/dL (6.2-8.2)
[2021-03-27 19:48] LABS: Microalbumin Creatinine Ratio <30 mg/g Creat (0-30); Urine Creatinine 76.4 mg/dL (28.0-217.0)
== END | disposition home or self-care (01) ==
LOC: LABWHC1 10:32
PROVIDERS: ATTEND Internal Medicine Endocrinology, Diabetes & Metabolism
DX: E11.65 Type 2 diabetes mellitus with hyperglycemia (principal); E21.3 Hyperparathyroidism, unspecified
CPT/HCPCS: 36415; 80053; 82043; 82306; 82570; 83036; 83970; 84443

== ENCOUNTER → 2021-04-18 | Outpatient (CLI) | payer MEDICARE, BC ==
--- NOTE | 2021-04-18 15:41 | US ---
EXAMINATION TYPE: US thyroid st tissue head/neck DATE OF EXAM: 04/18/2021 COMPARISON: NONE CLINICAL HISTORY: E21.3 HYPERPARATHYROIDISM. Follow up, history of multiple nodules GLAND SIZE: Right Lobe: 5.2 x 2.0 x 1.8 cm Overall Parenchyma: heterogenous Left Lobe: 5.3 x 1.4 x1.4 cm Overall Parenchyma: heterogeneous Isthmus Thickness: 0.2 cm NODULES RIGHT: # of nodules measured on right: 3 1. 0.9 X 0.8 x 0.5 cm, lower medial, solid or almost completely solid, hypoechoic nodule, which is wider than tall, with lobulated or irregular margins, without echogenic foci. Prior size: 0.8 x 0.7 x 0.5 cm 2. 0.7 X 0.7 x 0.6 cm, mid lateral, solid or almost completely solid, hypoechoic nodule, which is w ider than tall, with lobulated or irregular margins, without echogenic foci. Prior size: 0.5 x 0.5 x 0.6 cm 3. 0.4 X 0.4 x 03 cm, upper medial, solid or almost completely solid, hypoechoic nodule, which is w ider than tall, with lobulated or irregular margins, without echogenic foci. Prior size: 0.4 x 0.3 x 0.4 cm LEFT: # of nodules measured on left: 3 1. 0.6 X 0.6 x 0.6 cm, upper lateral, solid or almost completely solid, hypoechoic nodule, which is wider than tall, with lobulated or irregular margins, without echogenic foci. Prior size: 0.7 x 0.5 x 0.5 cm 2. 1.0 X 0.7 x 0.3 cm, mid mid, solid or almost completely solid, hypoechoic nodule, which is wide r than tall, with lobulated or irregular margins, without echogenic foci. TR 4 Prior size: 0.7 x 0.6 x 0.5 cm 3. 0.5 X 0.6 x 0.3 cm, lower mid, solid or almost completely solid, hypoechoic nodule, which is wid er than tall, with lobulated or irregular margins, without echogenic foci. Prior size: 0.5x0.4 x 0.3 cm ISTHMUS: # of nodules measured in the isthmus: 1 1. 0.7 X 0.8x 0.5 solid or almost completely solid, hypoechoic nodule, which is wider than tall, wit h lobulated or irregular margins, without echogenic foci. Bilateral neck scanned, no evidence of lymphadenopathy. Bilateral nodules seen that appear similar to prior exam IMPRESSION: Moderately suspicious nodule left lobe thyroid slightly enlarged over the interval. Follow-up exam in one year is recommended. 2017 ACR TI-RADS LEVEL: TR-RADS 4 - Moderately Suspicious: Follow if > 1 cm, FNA if > 1.5 cm *Highest TI-RADS level nodule reported
== END | disposition home or self-care (01) ==
LOC: RADUSWWP 07:51
PROVIDERS: ATTEND Internal Medicine Endocrinology, Diabetes & Metabolism
DX: E21.3 Hyperparathyroidism, unspecified (principal)
CPT/HCPCS: 76536

== ENCOUNTER 2021-05-31 20:05 | Inpatient (IN) | payer MEDICARE, BC ==
--- NOTE | 2021-05-31 21:07 | ED ---
Recheck HPI - General Chief Complaint: Recheck/Abnormal Lab/Rx Stated Complaint: Irregular labs-Sent by PCP Time Seen by Provider: 05/31/21 20:55 Source: patient, RN notes reviewed Mode of arrival: ambulatory Limitations: no limitations - History of Present Illness Initial Comments: This is a 70 year old female who presents to the emergency department per the instructions of her PCP Dr. Dennison for low platelets. Patient states that she has never had low platelets before. She is recovering from a viral infection. States that she caught RSV from her grandson 3 weeks ago. She felt better initially, however over the last week she began to develop a cough again. Denies any fevers/chills, SOB, or chest pain. She is noted to have diffuse petechiae, which she states she just noted a few days ago. - Related Data Home Medications Medication Instructions Recorded Confirmed Ubidecarenone [Co Q-10] 100 mg PO DAILY 06/16/15 11/18/19 Simvastatin [Zocor] 20 mg PO HS 08/01/15 11/18/19 Chlorthalidone 25 mg PO DAILY 11/08/19 11/18/19 Latanoprost/Pf [Latanoprost 0.005% 1 drop BOTH EYES HS 11/08/19 11/18/19 Eye Drop] lisinopriL [Zestril] 2.5 mg PO DAILY 11/08/19 11/18/19 Amlodipine (Unknown Dose) 1 tab PO DAILY 05/31/21 05/31/21 Cholecalciferol [Vitamin D3 (25 50 mcg PO DAILY 05/31/21 05/31/21 Mcg = 1000 Iu)] Eszopiclone 2 mg PO HS 05/31/21 05/31/21 L.acidoph,Paracasei, B.lactis 1 cap PO DAILY 05/31/21 05/31/21 [Probiotic] Levothyroxine Sodium [Synthroid] 50 mcg PO DAILY 05/31/21 05/31/21 Metoprolol Succinate (ER) [Toprol 100 mg PO BID 05/31/21 05/31/21 Xl] metFORMIN HCL ER [Glucophage XR] 500 mg PO DAILY 05/31/21 05/31/21 methocarbamoL [Robaxin] 500 mg PO TID PRN 05/31/21 05/31/21 Allergies Allergy/AdvReac Type Severity Reaction Status Date / Time Penicillins Allergy Unknown Verified 05/31/21 22:26 Childhood Review of Systems ROS Statement: Those systems with pertinent positive or pertinent negative responses have been documented in the HPI. ROS Other: All systems not noted in ROS Statement are negative. Constitutional: Denies: fever, chills ENT: Denies: ear pain, throat pain Respiratory: Reports: cough. Denies: dyspnea Cardiovascular: Denies: chest pain, palpitations Gastrointestinal: Denies: abdominal pain, nausea, vomiting, diarrhea Genitourinary: Denies: urgency, dysuria Musculoskeletal: Denies: back pain Skin: Reports: rash, lesions Neurological: Denies: headache, weakness Past Medical History Past Medical History: Mitral Valve Prolapse (MVP) Additional Past Medical History / Comment(s): HX ANEMIA. Kidney Stone. CHRONIC DIARRHEA. Arrhythmia "tachycardia," Pain Lower Middle Back. History of Any Multi-Drug Resistant Organisms: C-DIFF Date of last positivie culture/infection: 2005 MDRO Source:: stool Past Surgical History: Section, Cholecystectomy, Hysterectomy Additional Past Surgical History / Comment(s): Kidney Stone Surgery. Past Anesthesia/Blood Transfusion Reactions: Previous Problems w/ Anesthesia, Motion Sickness Additional Past Anesthesia/Blood Transfusion Reaction / Comment(s): AFTER HYSTERECTOMY, ENDED UP IN ICU. Past Psychological History: No Psychological Hx Reported Smoking Status: Never smoker Past Alcohol Use History: Rare Past Drug Use History: None Reported - Past Family History Father Family Medical History: Coronary Artery Disease (CAD), Pulmonary Embolus Mother Family Medical History: No Reported History General Exam Limitations: no limitations General appearance: alert, in no apparent distress Head exam: Present: atraumatic, normocephalic, normal inspection ENT exam: Present: other (Petechiae in the oropharynx) Respiratory exam: Present: other (Expiratory wheezing in all lung green with mild crackles that improve after the patient coughs) Cardiovascular Exam: Present: regular rate, normal rhythm, normal heart sounds. Absent: systolic murmur, diastolic murmur, rubs, gallop, clicks GI/Abdominal exam: Present: soft, normal bowel sounds. Absent: distended, tenderness, guarding, rebound, rigid Neurological exam: Present: alert, oriented X3, CN II-XII intact Psychiatric exam: Present: normal affect, normal mood Skin exam: Present: warm, dry, intact, other (Diffuse petechiae on the patient's bilateral arms and legs.) Course Vital Signs 05/31/21 20:08 Temperature 97.3 F L Pulse Rate 86 Respiratory 16 Rate Blood Pressure 171/84 O2 Sat by Pulse 97 Oximetry Medical Decision Making - Medical Decision Making This is a 70 year old female who presents to the emergency department per the instruction of her PCP Dr. Dennison for low platelets. Platelets were 1,000 on lab work from around 1200 today. Repeat CBC in the emergency department still pending. I spoke with Dr. Tapia who advised 1g of Solumedrol x3 days. Will admit the patient to Dr. Dennison for IV steroids and Dr. Tapia will consult. Of note, the patient is still recovering from RSV that she contracted from her grandson, due to the cough and adventitious lung sounds, a chest xray was obtained which revealed no acute changes. 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
[2021-05-31] MEDS ORDERED: methylPREDNISolone SOD SUCCI 125 MG/2 ML VIAL IV STA (21:34)
--- NOTE | 2021-05-31 21:38 | XR ---
EXAMINATION TYPE: XR chest 2V DATE OF EXAM: 05/31/2021 9:07 PM COMPARISON:Chest radiographs from 05/31/2019 TECHNIQUE: XR chest 2V Frontal and lateral views of the chest. CLINICAL INDICATION:Female, 70 years old with history of Cough and wheezing; FINDINGS: Lungs/Pleura: There is flattening of the diaphragm with increased lucency of the lungs. No evidence o f pneumothorax, pleural effusion or focal consolidation. Pulmonary vascularity: Unremarkable. Heart/mediastinum: Cardiomediastinal silhouette is unremarkable. Musculoskeletal: No acute osseous pathology. IMPRESSION: 1. No acute cardiopulmonary disease/process. 2. 3. COPD changes.
[2021-05-31] MEDS ORDERED: NALOXONE 0.4 MG/ML 1 ML VIAL IV PRN (22:02)
[2021-05-31] MEDS ORDERED: HYDROcodone/APAP 5-325MG 1 EACH TAB PO PRN (22:07)
[2021-05-31] MEDS ORDERED: ONDANSETRON 4 MG/2 ML VIAL IVP PRN (22:07)
[2021-05-31] MEDS ORDERED: oxyCODONE-APAP 5-325MG 1 EACH TAB PO PRN (22:07)
[2021-05-31] MEDS ORDERED: ALPRAZolam 0.25 MG TAB PO PRN (22:07)
[2021-05-31] MEDS ORDERED: MELATONIN 3 MG TABLET PO PRN (22:30)
[2021-06-01 00:31] LABS: Influenza A Not Detected (Not Detectd); Influenza B Not Detected (Not Detectd)
[2021-06-01 00:33] LABS: Basophils % (A) 0 %; Eosinophils % (A) 0 %; HCT 42.6 % (34.0-46.0); HGB 15.3 gm/dL (11.4-16.0); Lymphocytes # (A) 0.8 k/uL (1.0-4.8); Lymphocytes % (A) 10 %; MCH 30.6 pg (25.0-35.0); MCHC 35.9 g/dL (31.0-37.0); MCV 85.2 fL (80.0-100.0); Monocytes # (A) 0.2 k/uL (0-1.0); Monocytes % (A) 2 %; Neutrophils # (A) 6.7 k/uL (1.3-7.7); Neutrophils % (A) 86 %; RDW 12.9 % (11.5-15.5); WBC 7.8 k/uL (3.8-10.6)
[2021-06-01 00:42] LABS: Platelet Count 1 k/uL (150-450)
[2021-06-01] MEDS ORDERED: methocarbamoL 500 MG TAB PO PRN (08:33)
[2021-06-01] MEDS ORDERED: NON FORMULARY DRUG (Ubidecarenone [Co Q-10] 100 MG Capsule) PO SCH (09:00)
[2021-06-01] MEDS: metFORMIN 500 MG TAB PO SCH ×2 (09:12→21:23)
[2021-06-01] MEDS: METOPROLOL SUCCINATE (ER) 100 MG TAB.ER.24H PO SCH ×2 (09:13→21:23)
[2021-06-01] MEDS: LEVOTHYROXINE 50 MCG TAB PO SCH (09:14)
[2021-06-01] MEDS: amLODIPine 5 MG TAB PO SCH (09:14)
[2021-06-01] MEDS: CHOLECALCIFEROL 25 MCG (1000 IU) TABLET PO SCH (09:14)
[2021-06-01] MEDS: CHLORTHALIDONE 25 MG TAB PO SCH (09:14)
[2021-06-01] MEDS: ATORVASTATIN 10 MG TAB PO SCH (09:14)
[2021-06-01] MEDS: ACETAMINOPHEN TAB 325 MG TAB PO PRN ×2 (09:25→17:15)
[2021-06-01 09:49] LABS: ALT 19 U/L (4-34); AST 23 U/L (14-36); African American GFR (CKD) >90 (>60 ml/min/1.73 sqM); Albumin 4.1 g/dL (3.5-5.0); Albumin/Globulin Ratio 1.2; Alkaline Phosphatase 51 U/L (38-126); Anion Gap 12 mmol/L; Blood Urea Nitrogen 21 mg/dL (7-17); Carbon Dioxide 21 mmol/L (22-30); Chloride 105 mmol/L (98-107); Globulin 3.4 g/dL; Glucose 246 mg/dL (74-99); Non-African American GFR(CKD) >90 (>60 ml/min/1.73 sqM); Sodium 138 mmol/L (137-145); Total Bilirubin 0.9 mg/dL (0.2-1.3); Total Protein 7.5 g/dL (6.3-8.2)
[2021-06-01] MEDS: LACTOBACILLUS ACIDOPH & BULGAR 1 EACH PACKET PO SCH (10:08)
[2021-06-01 10:18] LABS: Basophils % (A) 0 %; Eosinophils % (A) 0 %; HCT 42.6 % (34.0-46.0); HGB 14.8 gm/dL (11.4-16.0); Lymphocytes # (A) 0.9 k/uL (1.0-4.8); Lymphocytes % (A) 8 %; MCH 30.3 pg (25.0-35.0); MCHC 34.6 g/dL (31.0-37.0); MCV 87.4 fL (80.0-100.0); Mean Platelet Volume 11.6; Monocytes # (A) 0.1 k/uL (0-1.0); Monocytes % (A) 1 %; Neutrophils # (A) 10.6 k/uL (1.3-7.7); Neutrophils % (A) 91 %; RBC 4.88 m/uL (3.80-5.40); WBC 11.7 k/uL (3.8-10.6)
[2021-06-01 11:54] LABS: Platelet Count 3 k/uL (150-450)
[2021-06-01] MEDS ORDERED: NON FORMULARY DRUG IV SCH (13:00)
[2021-06-01] MEDS: SODIUM CHLORIDE 0.9% IVPB SCH ×2 (13:41→19:57)
[2021-06-01] MEDS: METHYLPREDNISOLONE SOD SUCCIN IVPB SCH ×2 (13:41→19:57)
[2021-06-01] MEDS ORDERED: IMMUNE GLOBULIN (GAMMAGARD) 30 GM in EMPTY BAG 1 BAG IV ONE (14:00)
[2021-06-01] MEDS: PANTOPRAZOLE 40 MG TABLET PO SCH (17:18)
--- NOTE | 2021-06-01 18:38 | P.CONS ---
History of Present Illness - Reason for Consult Consult date: 06/01/21 ITP Requesting physician: Roxann Peña - History of Present Illness Mrs Tran is a pleasant female who presented at the direction of her PCP for abnormal labs. Platelets on admission were 1. Per the patient she was recently sick with a viral RSV infection she caught from grandchildren. She has never previously had thrombocytopenia. One gram of methylprednisone then 70mg/kg/[id number], then 1mg/kg/pred per day on going and simulates administer 0.7mg/kg IVIG over 2 days Review of Systems All systems: negative Constitutional: Reports as per HPI Past Medical History Past Medical History: Diabetes Mellitus, Mitral Valve Prolapse (MVP) Additional Past Medical History / Comment(s): HX ANEMIA. Kidney Stone. CHRONIC DIARRHEA. Arrhythmia "tachycardia," Pain Lower Middle Back. History of Any Multi-Drug Resistant Organisms: C-DIFF Year Discovered:: 2005 MDRO Source:: stool Past Surgical History: Section, Cholecystectomy, Hysterectomy Additional Past Surgical History / Comment(s): Kidney Stone Surgery. Past Anesthesia/Blood Transfusion Reactions: Previous Problems w/ Anesthesia, Motion Sickness Additional Past Anesthesia/Blood Transfusion Reaction / Comm: AFTER HYSTERECTOMY, ENDED UP IN ICU. Past Psychological History: No Psychological Hx Reported Smoking Status: Never smoker Past Alcohol Use History: Rare Past Drug Use History: None Reported - Past Family History Father Family Medical History: Coronary Artery Disease (CAD), Pulmonary Embolus Mother Family Medical History: No Reported History Medications and Allergies Home Medications Medication Instructions Recorded Confirmed Type Ubidecarenone [Co Q-10] 100 mg PO DAILY 06/16/15 05/31/21 History Simvastatin [Zocor] 20 mg PO DAILY 08/01/15 05/31/21 History Chlorthalidone 25 mg PO DAILY 11/08/19 05/31/21 History Latanoprost/Pf [Latanoprost 0.005% 1 drop BOTH EYES HS 11/08/19 05/31/21 History Eye Drop] lisinopriL [Zestril] 2.5 mg PO DAILY 11/08/19 05/31/21 History Amlodipine (Unknown Dose) 1 tab PO DAILY 05/31/21 05/31/21 History Cholecalciferol [Vitamin D3 (25 50 mcg PO DAILY 05/31/21 05/31/21 History Mcg = 1000 Iu)] Eszopiclone 2 mg PO HS 05/31/21 05/31/21 History L.acidoph,Paracasei, B.lactis 1 cap PO DAILY 05/31/21 05/31/21 History [Probiotic] Levothyroxine Sodium [Synthroid] 50 mcg PO DAILY 05/31/21 05/31/21 History Metoprolol Succinate (ER) [Toprol 100 mg PO BID 05/31/21 05/31/21 History Xl] metFORMIN HCL ER [Glucophage XR] 500 mg PO DAILY 05/31/21 05/31/21 History methocarbamoL [Robaxin] 500 mg PO TID PRN 05/31/21 05/31/21 History Allergies Allergy/AdvReac Type Severity Reaction Status Date / Time Penicillins Allergy Unknown Verified 05/31/21 22:26 Childhood Physical Exam Vitals: Vital Signs Temp Pulse Pulse Resp BP BP Pulse Ox 06/01/21 04:29 97.6 F 64 20 143/78 94 L 06/01/21 00:54 97.4 F L 73 20 160/77 95 06/01/21 00:50 97.4 F L 73 20 160/77 95 06/01/21 00:33 73 18 143/74 95 05/31/21 23:52 78 18 141/75 96 05/31/21 20:08 97.3 F L 86 16 171/84 97 Intake and Output 05/31/21 06/01/21 06/01/21 22:59 06:59 14:59 Intake Total 700 120 Balance 700 120 Intake: Oral 700 120 Other: # Voids 1 Weight 69.4 kg 69.4 kg - Constitutional General appearance: cooperative, no acute distress - EENT Eyes: EOMI ENT: NA/AT - Neck Neck: normal ROM - Respiratory Respiratory: bilateral: CTA - Cardiovascular Rhythm: regularly irregular - Gastrointestinal General gastrointestinal: soft - Integumentary [place] Integumentary: pale - Neurologic Neurologic: CNII-XII intact - Musculoskeletal Musculoskeletal: generalized weakness - Psychiatric Psychiatric: A&O x's 3, appropriate affect, intact judgment & insight Results CBC & Chem 7: 06/01/21 08:42 06/01/21 08:42 Labs: Abnormal Lab Results - Last 24 Hours (Table) 03/03/22 03/04/22 03/04/22 Range/Units 23:45 08:42 08:42 WBC 11.7 H (3.8-10.6) k/uL Plt Count 1 L* 3 L* D (150-450) k/uL Neutrophils # 10.6 H (1.3-7.7) k/uL Lymphocytes # 0.8 L 0.9 L (1.0-4.8) k/uL Potassium 3.0 L (3.5-5.1) mmol/L Carbon Dioxide 21 L (22-30) mmol/L BUN 21 H (7-17) mg/dL Glucose 246 H (74-99) mg/dL Assessment and Plan (1) 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 Will need to notify onc office closer to date of discharge for day and time of follow-up. IVIG x2 days ordered Transfuse PLatelets less than 10K or if signs of bleeding Current Visit: Yes Status: Acute Code(s): D69.3 - IMMUNE THROMBOCYTOPENIC PURPURA SNOMED Code(s): 5763675 (2) Leukocytosis Narrative/Plan: Recent VIral infection Antiphospholipid and full work-up for picture of ITP and Leukocytosis - Wait on results Current Visit: Yes Status: Acute Code(s): D72.829 - ELEVATED WHITE BLOOD CELL COUNT, UNSPECIFIED SNOMED Code(s): 960663817 Plan: Dr. Lozano: The full history and physical, assessment and plan was performed and all decision making was determined by Dr. Des Javed. Above dictation has been dictated as a scribe
[2021-06-01] MEDS: TEMAZEPAM 15 MG CAP PO SCH (21:23)
[2021-06-01] MEDS: LATANOPROST 0.005% OPHTH DROPS 2.5 ML BTL BOTH EYES SCH (21:24)
[2021-06-02] MEDS: SODIUM CHLORIDE 0.9% IVPB SCH ×5 (00:59→23:28)
[2021-06-02] MEDS: METHYLPREDNISOLONE SOD SUCCIN IVPB SCH ×5 (00:59→23:28)
[2021-06-02 08:29] LABS: C Reactive Protein <0.30 mg/dL (0.00-0.80); Iron 76 ug/dL (50-170)
[2021-06-02 08:30] LABS: % Iron Saturation 21.15 (12.00-45.00); Total Iron Binding Capacity 361 ug/dL (228-460)
[2021-06-02] MEDS: amLODIPine 5 MG TAB PO SCH (09:47)
[2021-06-02] MEDS: CHOLECALCIFEROL 25 MCG (1000 IU) TABLET PO SCH (09:47)
[2021-06-02] MEDS: CHLORTHALIDONE 25 MG TAB PO SCH (09:47)
[2021-06-02] MEDS: LEVOTHYROXINE 50 MCG TAB PO SCH (09:47)
[2021-06-02] MEDS: ATORVASTATIN 10 MG TAB PO SCH (09:47)
[2021-06-02] MEDS: PANTOPRAZOLE 40 MG TABLET PO SCH ×2 (09:47→17:40)
[2021-06-02] MEDS: METOPROLOL SUCCINATE (ER) 100 MG TAB.ER.24H PO SCH ×2 (09:48→20:36)
[2021-06-02] MEDS: metFORMIN 500 MG TAB PO SCH ×2 (09:48→20:36)
[2021-06-02 09:51] LABS: Rheumatoid Factor, Qnt <10 IU/mL (0-15)
[2021-06-02] MEDS: LACTOBACILLUS ACIDOPH & BULGAR 1 EACH PACKET PO SCH (10:30)
[2021-06-02] MEDS ORDERED: POTASSIUM CHLORIDE ER 20 MEQ TAB.ER PO STA (10:40)
--- NOTE | 2021-06-02 11:02 | P.HPIM ---
History of Present Illness H&P Date: 06/01/21 Chief Complaint: ITP due to infection HISTORY OF PRESENT ILLNESS: This is a 70-year-old female with a previous medical history significant for hypertension and hypertensive cardio vascular disease, hyperlipidemia, diabetes mellitus type 2, hypothyroidism, patient was exposed to her grand children were diagnosed with an upper respiratory tract infection likely RSV infection and she came down with an upper respiratory tract infection for the past 4 days prior she was seen in the office yesterday and at that time she was complaining of significant coughing with no phlegm production associated with chills no fever, and at the same time she noticed blistering in the oral mucosa especially on the right with the also non-blanchable purpura on her face tongue on her arms and her legs patient has been having these symptoms for greater than 5 days prior to her presented to the office suspected an autoimmune reaction due to her viral illness likely ITP, patient had a blood draw in the office including a CBC CMP on immune workup including a negative rheumatoid factor and compliments including C3-C4 and CH 50 or came back negative except for a platelet count of 1 she was directed to go to the emergency department for treatment immediately she was started on Solu-Medrol 1 g IV piggyback 1 followed by Solu-Medrol 500 mg IV piggyback every 6 hours as well as IVIG gram per kilogram per day for the next 2 days patient was seen in consultation by hematology oncology who recommended the above treatment plan, patient will be staying in the hospital until her trend is up. REVIEW OF SYSTEMS: Constitutional: No documented fever, positive for chills, no night sweats. No weight change. positive for weakness, fatigue or lethargy. No daytime sleepiness. HEENT: positve for headache. No blurred vision or double vision, no loss of vision. No loss of Hearing, no ringing in the ears, no dizziness. No nasal drainage or congestion. No epistaxis. No sore throat. Lungs: No shortness of breath, positive for dry cough, no sputum production. No wheezing. Reports dyspnea with activity. Cardiovascular: No chest pain, no lower extremity edema. No palpitations. No paroxysmal nocturnal dyspnea. No orthopnea. No lightheadedness or dizziness. No syncopal episodes. Abdominal: Reports no abdominal pain. No nausea, vomiting. No diarrhea. No constipation. No bloody or tarry stools reports loss of appetite. Genitourinary: No dysuria, increased frequency, urgency. No urinary retention. Musculoskeletal: No myalgias. No muscle weakness, no gait dysfunction, no frequent falls. positive for back pain and neck pain. Integumentary: No wounds, there is oral mucosal lesion with blistering to the right buccal area along with deep purpura on the tongue, there is non blanchable purpura to the face, arms and legs Neurologic: No aphasia. No facial droop. No change in mentation. No head injury. No headache. No paralysis. No paresthesia. Psychiatric: No depression. No anxiety. No mood swings. Endocrine: No abnormal blood sugars. No weight change. PAST MEDICAL HISTORY: Hypertension and hypertensive cardio vascular disease. Hyperlipidemia. Diabetes mellitus type 2. Hypothyroidism. Migraine headache Osteoarthritis. Spondylosis of the lumbar spine. Spondylosis of the cervical spine. Insomnia. Vitamin D deficiency. PAST SURGICAL HISTORY: . Cholecystectomy. Hysterectomy. Kidney stone surgery. Colonoscopy SOCIAL HISTORY: patient is a lifelong nonsmoker, she denies any alcohol ingestion, no drug use or abuse. She lives with her . FAMILY HISTORY: father at age of 54 from CAD and pulmonary embolism and he had history of [place] mother at age of 90 from congestive heart failure patient has one brothe r and one sister or brother patient has 2 sons no major recurrent problems. PHYSICAL EXAMINATION: General: This is a 70-year-old female who is laying down in bed in no acute distress. HEENT: Head is atraumatic, normocephalic, pupils were equal round reactive to light and recommendation, extraocular muscle movement were intact, sclera nonicteric, conjunctivae were pale, mucous membranes of the mouth are somewhat dry. Neck: Supple, no JVP, normal carotid upstroke bilaterally, no lymphadenopathy. Chest: Decreased breath sounds at the bases, few rhonchi, no expiratory wheezes, no chest wall tenderness, no intercostal retractions. Heart: First heart sound is normal, second heart sounds normal there is no gallop or murmur. Abdomen: Soft, nontender, nondistended, positive bowel sounds. Extremities: There is no edema no calf tenderness DP +2 bilaterally. Neurologic examination: Patient is awake alert and oriented X 3, cranial nerves II-12 appear grossly intact, muscle power were 5 out of 5 in upper extremities and 5 out of 5 in bilateral lower extremities, deep tendon reflexes normal bilaterally. Skin examination: There is non-blanchable purpura on the face upper extremity his lower extremity is as well as her abdomen is also mucosal lesions on the right buccal area ASSESSMENT AND PLAN: 1. 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 Patient was admitted to Hospital she was started on Solu- Medrol 1 g IV piggyback 1 followed by 250 mg IV piggyback every 6 hours , she was also started on IVIG for the next 2 days. Hematology consultation appreciated, avoid falls, avoids heparin, avoids NSAIDs, transfuse if platelet count less than 10,000 in case of bleeding. 2. Hypertension and hypertensive cardiovascular disease. Continue patient on lisinopril 2.5 mg once every day, continue amlodipine 5 mg orally once every day, continue Toprol-XL 100 mg orally twice every day. 3. Hyperlipidemia. Continue patient on atorvastatin 10 mg orally once every day. 4. Hypothyroidism. Continue patient on Synthroid 50 g orally once every day. 5. Diabetes mellitus type 2. Continue patient on metformin 250 mg orally twice every day, continue with sliding scale insulin. 6. Migraine headaches. Stable. 7. Spondylosis of the cervical spine and lumbar spine. Continue patient on [place] as needed as well as methocarbamol 500 mg orally 2 times every day. 8. Insomnia. Continue patient on melatonin 3 mg at bedtime as well as Restoril 15 mg at bedtime. 9. DVT prophylaxis. Bilateral knee-high THAI hose avoid heparin 10. GI prophylaxis. Continue Protonix 40 mg orally twice every day. 11. Admitted to inpatient. Estimated length of stay 2 midnights. 12. Patient is full code. Past Medical History Past Medical History: Diabetes Mellitus, Mitral Valve Prolapse (MVP) Additional Past Medical History / Comment(s): HX ANEMIA. Kidney Stone. CHRONIC DIARRHEA. Arrhythmia "tachycardia," Pain Lower Middle Back. History of Any Multi-Drug Resistant Organisms: C-DIFF Date of last positivie culture/infection: 2005 MDRO Source:: stool Past Surgical History: Section, Cholecystectomy, Hysterectomy Additional Past Surgical History / Comment(s): Kidney Stone Surgery. Past Anesthesia/Blood Transfusion Reactions: Previous Problems w/ Anesthesia, Motion Sickness Additional Past Anesthesia/Blood Transfusion Reaction / Comment(s): AFTER HYSTERECTOMY, ENDED UP IN ICU. Past Psychological History: No Psychological Hx Reported Smoking Status: Never smoker Past Alcohol Use History: Rare Past Drug Use History: None Reported - Past Family History Father Family Medical History: Coronary Artery Disease (CAD), Pulmonary Embolus Mother Family Medical History: No Reported History Medications and Allergies Home Medications Medication Instructions Recorded Confirmed Type Ubidecarenone [Co Q-10] 100 mg PO DAILY 06/16/15 05/31/21 History Simvastatin [Zocor] 20 mg PO DAILY 08/01/15 05/31/21 History Chlorthalidone 25 mg PO DAILY 11/08/19 05/31/21 History Latanoprost/Pf [Latanoprost 0.005% 1 drop BOTH EYES HS 11/08/19 05/31/21 History Eye Drop] lisinopriL [Zestril] 2.5 mg PO DAILY 11/08/19 05/31/21 History Amlodipine (Unknown Dose) 1 tab PO DAILY 05/31/21 05/31/21 History Cholecalciferol [Vitamin D3 (25 50 mcg PO DAILY 05/31/21 05/31/21 History Mcg = 1000 Iu)] Eszopiclone 2 mg PO HS 05/31/21 05/31/21 History L.acidoph,Paracasei, B.lactis 1 cap PO DAILY 05/31/21 05/31/21 History [Probiotic] Levothyroxine Sodium [Synthroid] 50 mcg PO DAILY 05/31/21 05/31/21 History Metoprolol Succinate (ER) [Toprol 100 mg PO BID 05/31/21 05/31/21 History Xl] metFORMIN HCL ER [Glucophage XR] 500 mg PO DAILY 05/31/21 05/31/21 History methocarbamoL [Robaxin] 500 mg PO TID PRN 05/31/21 05/31/21 History Allergies Allergy/AdvReac Type Severity Reaction Status Date / Time Penicillins Allergy Unknown Verified 05/31/21 22:26 Childhood Physical Exam Vitals: Vital Signs Temp Pulse Pulse Resp BP BP Pulse Ox 06/01/21 04:29 97.6 F 64 20 143/78 94 L 06/01/21 00:54 97.4 F L 73 20 160/77 95 06/01/21 00:50 97.4 F L 73 20 160/77 95 06/01/21 00:33 73 18 143/74 95 05/31/21 23:52 78 18 141/75 96 05/31/21 20:08 97.3 F L 86 16 171/84 97 Intake and Output 05/31/21 06/01/21 06/01/21 22:59 06:59 14:59 Intake Total 700 Balance 700 Intake: Oral 700 Other: # Voids 1 Weight 69.4 kg 69.4 kg Results CBC & Chem 7: 06/01/21 08:42 06/01/21 08:42 Labs: Abnormal Lab Results - Last 24 Hours (Table) 05/31/21 Range/Units 23:45 Plt Count 1 L* (150-450) k/uL Lymphocytes # 0.8 L (1.0-4.8) k/uL Thrombosis Risk Factor Assmnt - Choose All That Apply Any of the Below Risk Factors Present?: Yes Each Factor Represents 1 point: Medical pt on bed rest, Obesity (BMI >25) Other Risk Factors: Yes Each Risk Factor Represents 2 Points: Age 61-74 years Other congenital or acquired thrombophilia - If yes, enter type in comment: No Thrombosis Risk Factor Assessment Total Risk Factor Score: 4 Thrombosis Risk Factor Assessment Level: Moderate Risk
--- NOTE | 2021-06-02 11:47 | P.PN ---
Subjective Progress Note Date: 06/02/21 HISTORY OF PRESENT ILLNESS: This is a 70-year-old female with a previous medical history signif icant for hypertension and hypertensive cardio vascular disease, hyperlipidemia, diabetes mellitus type 2, hypothyroidism, patient was exposed to her grand children were diagnosed with an upper respiratory tract infection likely RSV infection and she came down with an upper respiratory tract infection for the past 4 days prior she was seen in the office yesterday and at that time she was complaining of significant coughing with no phlegm production associated with chills no fever, and at the same time she noticed blistering in the oral mucosa especially on the right with the also non-blanchable purpura on her face tongue on her arms and her legs patient has been having these symptoms for greater than 5 days prior to her presented to the office suspected an autoimmune reaction due to her viral illness likely ITP, patient had a blood draw in the office including a CBC CMP on immune workup including a negative rheumatoid factor and compliments including C3-C4 and CH 50 or came back negative except for a platelet count of 1 she was directed to go to the emergency department for treatment immediately she was started on Solu-Medrol 1 g IV piggyback 1 followed by Solu-Medrol 500 mg IV piggyback every 6 hours as well as IVIG gram per kilogram per day for the next 2 days patient was seen in consultation by hematology oncology who recommended the above treatment plan, patient will be st aying in the hospital until her trend is up. 06/02: Patient is laying down in bed in no apparent distress, she did receive Solu-Medrol 250 mg IV piggyback every 6 hours, as well as IVIG for another 24 hours, and the patient would be switched to oral prednisone 60 mg orally once every day in the next 48 hours, monitor the patient. Count very closely, patient denies any chest pain at this time, she denies any shortness breath, she does not have any evidence of any obvious bleeding, monitor the patient's CBC and CMP over the next 24 hours, monitor her potassium level, monitor magnesium level, monitor her emotional status make sure she does not have any emotional lability. REVIEW OF SYSTEMS: Constitutional: No documented fever, positive for chills, no night sweats. No weight change. positive for weakness, fatigue or lethargy. No daytime sleepiness. HEENT: positve for headache. No blurred vision or double vision, no loss of vision. No loss of Hearing, no ringing in the ears, no dizziness. No nasal drainage or congestion. No epistaxis. No sore throat. Lungs: No shortness of breath, positive for dry cough, no sputum production. No wheezing. Reports dyspnea with activity. Cardiovascular: No chest pain, no lower extremity edema. No palpitations. No paroxysmal nocturnal dyspnea. No orthopnea. No lightheadedness or dizziness. No syncopal episodes. Abdominal: Reports no abdominal pain. No nausea, vomiting. No diarrhea. No constipation. No bloody or tarry stools reports loss of appetite. Genitourinary: No dysuria, increased frequency, urgency. No urinary retention. Musculoskeletal: No myalgias. No muscle weakness, no gait dysfunction, no frequent falls. positive for back pain and neck pain. Integumentary: No wounds, there is oral mucosal lesion with blistering to the right buccal area along with deep purpura on the tongue, there is non blanchable purpura to the face, arms and legs Neurologic: No aphasia. No facial droop. No change in mentation. No head injury. No headache. No paralysis. No paresthesia. Psychiatric: No depression. No anxiety. No mood swings. Endocrine: No abnormal blood sugars. No weight change. PHYSICAL EXAMINATION: General: This is a 70-year-old female who is laying down in bed in no acute distress. HEENT: Head is atraumatic, normocephalic, pupils were equal round reactive to light and recommendation, extraocular muscle movement were intact, sclera nonicteric, conjunctivae were pale, mucous membranes of the mouth are somewhat dry. Neck: Supple, no JVP, normal carotid upstroke bilaterally, no lymphadenopathy. Chest: Decreased breath sounds at the bases, few rhonchi, no expiratory wheezes, no chest wall tenderness, no intercostal retractions. Heart: First heart sound is normal, second heart sounds normal there is no gallop or murmur. Abdomen: Soft, nontender, nondistended, positive bowel sounds. Extremities: There is no edema no calf tenderness DP +2 bilaterally. Neurologic examination: Patient is awake alert and oriented X 3, cranial nerves II-12 appear grossly intact, muscle power were 5 out of 5 in upper extremities and 5 out of 5 in bilateral lower extremities, deep tendon reflexes normal bilaterally. Skin examination: There is non-blanchable purpura on the face upper extremity his lower extremity is as well as her abdomen is also mucosal lesions on the right buccal area ASSESSMENT AND PLAN: 1. 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 Continue patient on Solu-Medrol 250 mg IV piggyback every 6 hours and transition to prednisone 60 mg orally once every day in 2 days, patient did receive IVIG as well, monitor the patient. Count, transfuse for platelets less than 10,000 in case of bleeding. Avoid NSAIDs, avoid heparin, including flushes keep the patient on bedrest. 2. Hypertension and hypertensive cardiovascular disease. Continue patient on lisinopril 2.5 mg once every day, continue amlodipine 5 mg orally once every day, continue Toprol-XL 100 mg orally twice every day. 3. Hyperlipidemia. Continue patient on atorvastatin 10 mg orally once every day. 4. Hypothyroidism. Continue patient on Synthroid 50 g orally once every day. 5. Diabetes mellitus type 2. Continue patient on metformin 250 mg orally twice every day, continue with sliding scale insulin. 6. Migraine headaches. Stable. 7. Spondylosis of the cervical spine and lumbar spine. Continue patient on [place] as needed as well as methocarbamol 500 mg orally 2 times every day. 8. Insomnia. Continue patient on melatonin 3 mg at bedtime as well as Restoril 15 mg at bedtime. 9. DVT prophylaxis. Bilateral knee-high THAI hose avoid heparin 10. GI prophylaxis. Continue Protonix 40 mg orally twice every day. 11. Continue to monitor. Objective - Vital Signs Vital signs: Vital Signs Temp 97.8 F 06/02/21 04:57 Pulse 85 06/02/21 09:45 Resp 16 06/02/21 04:57 BP 125/70 06/02/21 09:45 Pulse Ox 97 06/02/21 09:45 Intake & Output 06/01/21 06/02/21 06/02/21 18:59 06:59 18:59 Intake Total 413.276 4084.416 Balance 766.428 5171.416 Intake: Intake, IV Titration 313.584 736.416 Amount Immune Globulin ( 63.584 236.416 Gammagard) 30 gm In Empty Bag 1 bag @ Per Protocol IV .Q0M ONE Rx#: [id number] methylPREDNISolone SOD 250 500 SUCCIN 250 mg In Sodium Chloride 0.9% 250 ml @ 250 mls/hr IVPB Q6HR [facility] Rx#:[id number] Oral 120 600 Other: Voiding Method Toilet Toilet # Voids 3 2 - Labs CBC & Chem 7: 06/01/21 08:42 06/01/21 08:42 Labs: Abnormal Lab Results - Last 24 Hours (Table) 06/01/21 Range/Units 08:42 Plt Count 3 L* D (150-450) k/uL Neutrophils # 10.6 H (1.3-7.7) k/uL Lymphocytes # 0.9 L (1.0-4.8) k/uL
[2021-06-02 12:00] LABS: African American GFR (CKD) 100.3 (60.0-200.0); Albumin 3.7 g/dL (3.8-4.9); Albumin/Globulin Ratio 1.06 (1.60-3.17); BUN/Creat Ratio 32.43 Ratio (12.00-20.00); Blood Urea Nitrogen 22.7 mg/dL (9.0-27.0); Calcium 8.9 mg/dL (8.7-10.3); Globulin 3.5 g/dL (1.6-3.3); Non-African American GFR(CKD) 86.6 (60.0-200.0); Potassium 2.9 mmol/L (3.5-5.5); Total Bilirubin 0.5 mg/dL (0.30-1.20); Total Protein 7.2 g/dL (6.2-8.2)
[2021-06-02] MEDS ORDERED: IMMUNE GLOBULIN (GAMMAGARD) 20 GM in EMPTY BAG 1 BAG IV ONE (12:00)
[2021-06-02 12:12] LABS: Basophils # (A) 0.03 X 10*3/uL (0.00-0.10); Basophils % (A) 0.1 %; Eosinophils # (A) 0 X 10*3/uL (0.04-0.35); Eosinophils % (A) 0 %; HCT 36.8 % (37.2-46.3); HGB 12.6 g/dL (12.0-15.0); Immature Grans, Automated 0.8 %; Immature Platelet Fraction 17.1 % (1.1-6.1); Lymphocytes # (A) 0.89 X 10*3/uL (0.90-5.00); Lymphocytes % (A) 4.3 %; MCHC 34.2 g/dL (32.0-37.0); MCV 84.6 fL (80.0-97.0); Mean Platelet Volume 12.5 fL (9.5-12.2); Monocytes # (A) 0.28 X 10*3/uL (0.20-1.00); Monocytes % (A) 1.4 %; NRBC Per 100 WBC 0 /100 WBCS (0.0-0.0); Neutrophils # (A) 19.14 X 10*3/uL (1.80-7.70); Neutrophils % (A) 93.4 %; Platelet Count 20 X 10*3/uL (140-440); RBC 4.35 X 10*6/uL (4.10-5.20); RDW 12.2 % (11.5-14.5)
[2021-06-02 12:34] LABS: Glucose,Whole Blood 253 mg/dL (75-99)
[2021-06-02] MEDS: INSULIN ASPART (NovoLOG) 100 UNIT/ML VIAL SQ SCH ×3 (12:51→20:41)
[2021-06-02 16:55] LABS: Glucose,Whole Blood 177 mg/dL (75-99)
[2021-06-02] MEDS: LATANOPROST 0.005% OPHTH DROPS 2.5 ML BTL BOTH EYES SCH (20:39)
[2021-06-02 20:42] LABS: Glucose,Whole Blood 246 mg/dL (75-99)
[2021-06-02] MEDS: TEMAZEPAM 15 MG CAP PO SCH (21:40)
[2021-06-03] MEDS: SODIUM CHLORIDE 0.9% IVPB SCH ×3 (05:34→17:54)
[2021-06-03] MEDS: METHYLPREDNISOLONE SOD SUCCIN IVPB SCH ×3 (05:34→17:54)
[2021-06-03 07:02] LABS: Glucose,Whole Blood 177 mg/dL (75-99)
[2021-06-03] MEDS: PANTOPRAZOLE 40 MG TABLET PO SCH ×2 (07:42→17:54)
[2021-06-03] MEDS: LACTOBACILLUS ACIDOPH & BULGAR 1 EACH PACKET PO SCH (07:42)
[2021-06-03] MEDS: INSULIN ASPART (NovoLOG) 100 UNIT/ML VIAL SQ SCH ×4 (07:42→20:29)
[2021-06-03] MEDS: LEVOTHYROXINE 50 MCG TAB PO SCH (07:43)
[2021-06-03] MEDS: CHOLECALCIFEROL 25 MCG (1000 IU) TABLET PO SCH (07:43)
[2021-06-03] MEDS: ATORVASTATIN 10 MG TAB PO SCH (07:43)
[2021-06-03] MEDS: metFORMIN 500 MG TAB PO SCH ×2 (07:43→20:29)
[2021-06-03] MEDS: METOPROLOL SUCCINATE (ER) 100 MG TAB.ER.24H PO SCH ×2 (07:50→20:29)
[2021-06-03] MEDS: amLODIPine 5 MG TAB PO SCH (07:50)
[2021-06-03] MEDS: CHLORTHALIDONE 25 MG TAB PO SCH (07:50)
[2021-06-03] MEDS ORDERED: POTASSIUM CHLORIDE ER 20 MEQ TAB.ER PO STA (09:33)
--- NOTE | 2021-06-03 09:42 | P.PN ---
Subjective Progress Note Date: 06/03/21 HISTORY OF PRESENT ILLNESS: This is a 70-year-old female with a previous medical history signif icant for hypertension and hypertensive cardio vascular disease, hyperlipidemia, diabetes mellitus type 2, hypothyroidism, patient was exposed to her grand children were diagnosed with an upper respiratory tract infection likely RSV infection and she came down with an upper respiratory tract infection for the past 4 days prior she was seen in the office yesterday and at that time she was complaining of significant coughing with no phlegm production associated with chills no fever, and at the same time she noticed blistering in the oral mucosa especially on the right with the also non-blanchable purpura on her face tongue on her arms and her legs patient has been having these symptoms for greater than 5 days prior to her presented to the office suspected an autoimmune reaction due to her viral illness likely ITP, patient had a blood draw in the office including a CBC CMP on immune workup including a negative rheumatoid factor and compliments including C3-C4 and CH 50 or came back negative except for a platelet count of 1 she was directed to go to the emergency department for treatment immediately she was started on Solu-Medrol 1 g IV piggyback 1 followed by Solu-Medrol 500 mg IV piggyback every 6 hours as well as IVIG gram per kilogram per day for the next 2 days patient was seen in consultation by hematology oncology who recommended the above treatment plan, patient will be st aying in the hospital until her trend is up. 06/02: Patient is laying down in bed in no apparent distress, she did receive Solu-Medrol 250 mg IV piggyback every 6 hours, as well as IVIG for another 24 hours, and the patient would be switched to oral prednisone 60 mg orally once every day in the next 48 hours, monitor the patient. Count very closely, patient denies any chest pain at this time, she denies any shortness breath, she does not have any evidence of any obvious bleeding, monitor the patient's CBC and CMP over the next 24 hours, monitor her potassium level, monitor magnesium level, monitor her emotional status make sure she does not have any emotional lability. 6: Patient has been doing better, she is coughing less, she is not short of breath, she denies any chest pain or shortness breath at this time, she denies any abdominal pain, she has no obvious internal or external bleeding at this point in time, await the result of the CBC to check her platelet count today. REVIEW OF SYSTEMS: Constitutional: No documented fever, positive for chills, no night sweats. No weight change. positive for weakness, fatigue or lethargy. No daytime sleepiness. HEENT: positve for headache. No blurred vision or double vision, no loss of vision. No loss of Hearing, no ringing in the ears, no dizziness. No nasal drainage or congestion. No epistaxis. No sore throat. Lungs: No shortness of breath, positive for dry cough, no sputum production. No wheezing. Reports dyspnea with activity. Cardiovascular: No chest pain, no lower extremity edema. No palpitations. No paroxysmal nocturnal dyspnea. No orthopnea. No lightheadedness or dizziness. No syncopal episodes. Abdominal: Reports no abdominal pain. No nausea, vomiting. No diarrhea. No constipation. No bloody or tarry stools reports loss of appetite. Genitourinary: No dysuria, increased frequency, urgency. No urinary retention. Musculoskeletal: No myalgias. No muscle weakness, no gait dysfunction, no frequent falls. positive for back pain and neck pain. Integumentary: No wounds, there is oral mucosal lesion with blistering to the right buccal area along with deep purpura on the tongue, there is non blanchable purpura to the face, arms and legs Neurologic: No aphasia. No facial droop. No change in mentation. No head injury. No headache. No paralysis. No paresthesia. Psychiatric: No depression. No anxiety. No mood swings. Endocrine: No abnormal blood sugars. No weight change. PHYSICAL EXAMINATION: General: This is a 70-year-old female who is laying down in bed in no acute distress. HEENT: Head is atraumatic, normocephalic, pupils were equal round reactive to light and recommendation, extraocular muscle movement were intact, sclera nonicteric, conjunctivae were pale, mucous membranes of the mouth are somewhat dry. Neck: Supple, no JVP, normal carotid upstroke bilaterally, no lymphadenopathy. Chest: Decreased breath sounds at the bases, few rhonchi, no expiratory wheezes, no chest wall tenderness, no intercostal retractions. Heart: First heart sound is normal, second heart sounds normal there is no gallop or murmur. Abdomen: Soft, nontender, nondistended, positive bowel sounds. Extremities: There is no edema no calf tenderness DP +2 bilaterally. Neurologic examination: Patient is awake alert and oriented X 3, cranial nerves II-12 appear grossly intact, muscle power were 5 out of 5 in upper extremities and 5 out of 5 in bilateral lower extremities, deep tendon reflexes normal bilaterally. Skin examination: There is non-blanchable purpura on the face upper extremity his lower extremity is as well as her abdomen is also mucosal lesions on the right buccal area ASSESSMENT AND PLAN: 1. 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 Continue patient on Solu-Medrol 250 mg IV piggyback every 6 hours and transition to prednisone 60 mg orally once every day in 2 days, patient did receive IVIG as well, monitor the patient. Count, transfuse for platelets less than 10,000 in case of bleeding. Avoid NSAIDs, avoid heparin, including flushes keep the patient on bedrest. 2. Hypertension and hypertensive cardiovascular disease. Continue patient on lisinopril 2.5 mg once every day, continue amlodipine 5 mg orally once every day, continue Toprol-XL 100 mg orally twice every day. 3. Hyperlipidemia. Continue patient on atorvastatin 10 mg orally once every day. 4. Hypothyroidism. Continue patient on Synthroid 50 g orally once every day. 5. Diabetes mellitus type 2. Continue patient on metformin 250 mg orally twice every day, continue with sliding scale insulin. 6. Migraine headaches. Stable. 7. Spondylosis of the cervical spine and lumbar spine. Continue patient on [place] as needed as well as methocarbamol 500 mg orally 2 times every day. 8. Insomnia. Continue patient on melatonin 3 mg at bedtime as well as Restoril 15 mg at bedtime. 9. DVT prophylaxis. Bilateral knee-high THAI hose avoid heparin 10. GI prophylaxis. Continue Protonix 40 mg orally twice every day. 11. Hypokalemia. Patient will be given another potassium chloride 40 Meq 1, repeat labs and magnesium level tomorrow morning. Objective - Vital Signs Vital signs: Vital Signs Temp 97.4 F L 06/03/21 03:56 Pulse 64 06/03/21 07:49 Resp 18 06/03/21 03:56 BP 119/65 06/03/21 07:49 Pulse Ox 97 06/03/21 07:49 Intake & Output 0306/03/21 06/03/21 18:59 06:59 18:59 Intake Total 907.403 5610 Balance 807.584 3205 Intake: Intake, IV Titration 700.000 500 Amount Immune Globulin ( 200.000 Gammagard) 20 gm In Empty Bag 1 bag @ Per Protocol IV .Q0M ONE Rx#: [id number] methylPREDNISolone SOD 500 500 SUCCIN 250 mg In Sodium Chloride 0.9% 250 ml @ 250 mls/hr IVPB Q6HR [facility] Rx#:[id number] Oral 500 Other: Voiding Method Toilet Toilet Toilet # Voids 3 2 - Labs CBC & Chem 7: 06/02/21 06:39 06/02/21 06:39 Labs: Abnormal Lab Results - Last 24 Hours (Table) 06/02/21 06/02/21 06/02/21 Range/Units 06:39 06:39 12:32 WBC 20.50 H (4.50-10.00) X 10*3/uL Hct 36.8 L (37.2-46.3) % Plt Count 20 L (140-440) X 10*3/uL Plt Count Comment A MPV 12.5 H (9.5-12.2) fL Immature Gran # 0.16 H (0.00-0.04) X 10*3/uL Neutrophils # 19.14 H (1.80-7.70) X 10*3/uL Lymphocytes # 0.89 L (0.90-5.00) X 10*3/uL Eosinophils # 0 L (0.04-0.35) X 10*3/uL Immature Plt Fraction 17.1 H (1.1-6.1) % Potassium 2.9 L (3.5-5.5) mmol/L BUN/Creatinine Ratio 32.43 H (12.00-20.00) Ratio Glucose 169 H (70-110) mg/dL POC Glucose (mg/dL) 253 H (75-99) mg/dL Albumin 3.7 L (3.8-4.9) g/dL Globulin 3.5 H (1.6-3.3) g/dL Albumin/Globulin Ratio 1.06 L (1.60-3.17) g/dL 06/02/21 06/02/21 06/03/21 Range/Units 16:53 20:38 07:01 WBC (4.50-10.00) X 10*3/uL Hct (37.2-46.3) % Plt Count (140-440) X 10*3/uL Plt Count Comment MPV (9.5-12.2) fL Immature Gran # (0.00-0.04) X 10*3/uL Neutrophils # (1.80-7.70) X 10*3/uL Lymphocytes # (0.90-5.00) X 10*3/uL Eosinophils # (0.04-0.35) X 10*3/uL Immature Plt Fraction (1.1-6.1) % Potassium (3.5-5.5) mmol/L BUN/Creatinine Ratio (12.00-20.00) Ratio Glucose (70-110) mg/dL POC Glucose (mg/dL) 177 H 246 H 177 H (75-99) mg/dL Albumin (3.8-4.9) g/dL Globulin (1.6-3.3) g/dL Albumin/Globulin Ratio (1.60-3.17) g/dL
[2021-06-03 12:01] LABS: Glucose,Whole Blood 147 mg/dL (75-99)
--- NOTE | 2021-06-03 12:23 | P.PN ---
Subjective Progress Note Date: 06/03/21 Principal diagnosis: ITP Pt feeling much better. Petechia improving. No bleeding. Objective - Vital Signs Vital signs: Vital Signs Temp 97.4 F L 06/03/21 03:56 Pulse 64 06/03/21 07:49 Resp 18 06/03/21 03:56 BP 119/65 06/03/21 07:49 Pulse Ox 97 06/03/21 07:49 Intake & Output 06/02/21 06/03/21 06/03/21 18:59 06:59 18:59 Intake Total 703.377 4466 Balance 878.419 2238 Intake: Intake, IV Titration 700.000 500 Amount Immune Globulin ( 200.000 Gammagard) 20 gm In Empty Bag 1 bag @ Per Protocol IV .Q0M [facility] Rx#: [id number] methylPREDNISolone SOD 500 500 SUCCIN 250 mg In Sodium Chloride 0.9% 250 ml @ 250 mls/hr IVPB Q6HR [facility] Rx#:[id number] Oral 500 Other: Voiding Method Toilet Toilet Toilet # Voids 3 2 - Exam Gen.: no acute distress. HEENT: Mucosa moist. No conjunctival pallor or scleral icterus. Neck: Neck supple. Lungs: No respiratory distress. Heart: Normal rate. Abdomen: Soft. Neuro: Alert and oriented 3. Skin: No jaundice. Petechia scattered on UE's and LE's. Psych: Appropriate affect. - Labs CBC & Chem 7: 06/02/21 06:39 06/02/21 06:39 Labs: Abnormal Lab Results - Last 24 Hours (Table) 06/02/21 06/02/21 06/02/21 Range/Units 12:32 16:53 20:38 POC Glucose (mg/dL) 253 H 177 H 246 H (75-99) mg/dL 06/03/21 06/03/21 Range/Units 07:01 12:00 POC Glucose (mg/dL) 177 H 147 H (75-99) mg/dL Assessment and Plan Assessment: 1. ITP Plan: Ms. Tran is a very pleasant 70 yo female who recently had a viral infection, complicated by severe thrombocytopenia, platelets 1, as well as oral hemorrhagic bullae and petechiae who is here for ITP from viral infection. Has been on steroids and IVIG. Platelets from yesterday were 20. Repeat not done today and next ordered for tomorrow. Overall much improved. Continue with her current steroid regimen. No objections to discharge from hematology standpoint as long as her platelets are continuing to recover. She'll need to go home on prednisone 60 mg daily with planned outpatient follow-up later this week for repeat CBC. Discussed with patient detail she is agreeable to the plan. All of her questions were answered.
[2021-06-03 17:37] LABS: Glucose,Whole Blood 163 mg/dL (75-99)
[2021-06-03 20:25] LABS: Glucose,Whole Blood 179 mg/dL (75-99)
[2021-06-03] MEDS: LATANOPROST 0.005% OPHTH DROPS 2.5 ML BTL BOTH EYES SCH (20:29)
[2021-06-03] MEDS: TEMAZEPAM 15 MG CAP PO SCH (22:25)
[2021-06-04 07:25] LABS: Glucose,Whole Blood 158 mg/dL (75-99)
[2021-06-04] MEDS: INSULIN ASPART (NovoLOG) 100 UNIT/ML VIAL SQ SCH ×4 (07:39→20:32)
[2021-06-04] MEDS: LEVOTHYROXINE 50 MCG TAB PO SCH (07:40)
[2021-06-04] MEDS: CHOLECALCIFEROL 25 MCG (1000 IU) TABLET PO SCH (07:40)
[2021-06-04] MEDS: ATORVASTATIN 10 MG TAB PO SCH (07:40)
[2021-06-04] MEDS: predniSONE 20 MG TAB PO SCH (07:40)
[2021-06-04] MEDS: PANTOPRAZOLE 40 MG TABLET PO SCH ×2 (07:40→18:04)
[2021-06-04] MEDS: metFORMIN 500 MG TAB PO SCH ×2 (07:41→20:29)
[2021-06-04] MEDS: LACTOBACILLUS ACIDOPH & BULGAR 1 EACH PACKET PO SCH (07:42)
[2021-06-04] MEDS: CHLORTHALIDONE 25 MG TAB PO SCH (09:12)
[2021-06-04 09:16] LABS: Magnesium 2.3 mg/dL (1.5-2.4)
[2021-06-04 09:25] LABS: African American GFR (CKD) 100.3 (60.0-200.0); Albumin 3.4 g/dL (3.8-4.9); Albumin/Globulin Ratio 1.1 (1.60-3.17); BUN/Creat Ratio 37.57 Ratio (12.00-20.00); Blood Urea Nitrogen 26.3 mg/dL (9.0-27.0); Calcium 8.5 mg/dL (8.7-10.3); Globulin 3.1 g/dL (1.6-3.3); Non-African American GFR(CKD) 86.6 (60.0-200.0); Potassium 2.7 mmol/L (3.5-5.5); Total Bilirubin 0.5 mg/dL (0.30-1.20); Total Protein 6.5 g/dL (6.2-8.2)
[2021-06-04 09:41] LABS: Basophils # (A) 0.01 X 10*3/uL (0.00-0.10); Basophils % (A) 0.1 %; Eosinophils # (A) 0 X 10*3/uL (0.04-0.35); Eosinophils % (A) 0 %; HCT 33.6 % (37.2-46.3); HGB 11.5 g/dL (12.0-15.0); Immature Grans, Automated 0.8 %; Lymphocytes # (A) 0.69 X 10*3/uL (0.90-5.00); Lymphocytes % (A) 7.1 %; MCH 28.9 pg (27.0-32.0); MCHC 34.2 g/dL (32.0-37.0); MCV 84.4 fL (80.0-97.0); Mean Platelet Volume 11.2 fL (9.5-12.2); Monocytes # (A) 0.33 X 10*3/uL (0.20-1.00); Monocytes % (A) 3.4 %; NRBC Per 100 WBC 0 /100 WBCS (0.0-0.0); Neutrophils # (A) 8.57 X 10*3/uL (1.80-7.70); Neutrophils % (A) 88.6 %; Platelet Count 90 X 10*3/uL (140-440); RBC 3.98 X 10*6/uL (4.10-5.20); RDW 12.5 % (11.5-14.5); WBC 9.68 X 10*3/uL (4.50-10.00)
[2021-06-04 10:00] LABS: Immunoglobulin M 50.4 mg/dL (40.0-280.0)
[2021-06-04 10:06] LABS: Protein, Total 7.2 g/dL (6.2-8.2)
[2021-06-04] MEDS: POTASSIUM CHLORIDE ER 10 MEQ TAB.ER.PRT PO SCH ×2 (10:07→16:14)
[2021-06-04] MEDS: METOPROLOL SUCCINATE (ER) 100 MG TAB.ER.24H PO SCH ×2 (10:40→20:28)
--- NOTE | 2021-06-04 11:11 | P.PN ---
Subjective Progress Note Date: 06/04/21 HISTORY OF PRESENT ILLNESS: This is a 70-year-old female with a previous medical history signif icant for hypertension and hypertensive cardio vascular disease, hyperlipidemia, diabetes mellitus type 2, hypothyroidism, patient was exposed to her grand children were diagnosed with an upper respiratory tract infection likely RSV infection and she came down with an upper respiratory tract infection for the past 4 days prior she was seen in the office yesterday and at that time she was complaining of significant coughing with no phlegm production associated with chills no fever, and at the same time she noticed blistering in the oral mucosa especially on the right with the also non-blanchable purpura on her face tongue on her arms and her legs patient has been having these symptoms for greater than 5 days prior to her presented to the office suspected an autoimmune reaction due to her viral illness likely ITP, patient had a blood draw in the office including a CBC CMP on immune workup including a negative rheumatoid factor and compliments including C3-C4 and CH 50 or came back negative except for a platelet count of 1 she was directed to go to the emergency department for treatment immediately she was started on Solu-Medrol 1 g IV piggyback 1 followed by Solu-Medrol 500 mg IV piggyback every 6 hours as well as IVIG gram per kilogram per day for the next 2 days patient was seen in consultation by hematology oncology who recommended the above treatment plan, patient will be st aying in the hospital until her trend is up. 06/02: Patient is laying down in bed in no apparent distress, she did receive Solu-Medrol 250 mg IV piggyback every 6 hours, as well as IVIG for another 24 hours, and the patient would be switched to oral prednisone 60 mg orally once every day in the next 48 hours, monitor the patient. Count very closely, patient denies any chest pain at this time, she denies any shortness breath, she does not have any evidence of any obvious bleeding, monitor the patient's CBC and CMP over the next 24 hours, monitor her potassium level, monitor magnesium level, monitor her emotional status make sure she does not have any emotional lability. 6: Patient has been doing better, she is coughing less, she is not short of breath, she denies any chest pain or shortness breath at this time, she denies any abdominal pain, she has no obvious internal or external bleeding at this point in time, await the result of the CBC to check her platelet count today. 06/04: Patient is doing a lot better today, she can use to have minimal bruising on the legs her purpura has recovered completely, her platelets went up to 21,000, awaiting CBC from today, continue IV Solu-Medrol for another 24 hours she will be switched over prednisone 60 mg orally tomorrow morning and she can be discharged home in the morning. REVIEW OF SYSTEMS: Constitutional: No documented fever, positive for chills, no night sweats. No weight change. positive for weakness, fatigue or lethargy. No daytime sleepiness. HEENT: positve for headache. No blurred vision or double vision, no loss of vision. No loss of Hearing, no ringing in the ears, no dizziness. No nasal drainage or congestion. No epistaxis. No sore throat. Lungs: No shortness of breath, positive for dry cough, no sputum production. No wheezing. Reports dyspnea with activity. Cardiovascular: No chest pain, no lower extremity edema. No palpitations. No paroxysmal nocturnal dyspnea. No orthopnea. No lightheadedness or dizziness. No syncopal episodes. Abdominal: Reports no abdominal pain. No nausea, vomiting. No diarrhea. No constipation. No bloody or tarry stools reports loss of appetite. Genitourinary: No dysuria, increased frequency, urgency. No urinary retention. Musculoskeletal: No myalgias. No muscle weakness, no gait dysfunction, no frequent falls. positive for back pain and neck pain. Integumentary: No wounds, there is oral mucosal lesion with blistering to the right buccal area along with deep purpura on the tongue, there is non blanchable purpura to the face, arms and legs Neurologic: No aphasia. No facial droop. No change in mentation. No head injury. No headache. No paralysis. No paresthesia. Psychiatric: No depression. No anxiety. No mood swings. Endocrine: No abnormal blood sugars. No weight change. PHYSICAL EXAMINATION: General: This is a 70-year-old female who is laying down in bed in no acute distress. HEENT: Head is atraumatic, normocephalic, pupils were equal round reactive to light and recommendation, extraocular muscle movement were intact, sclera nonicteric, conjunctivae were pale, mucous membranes of the mouth are somewhat dry. Neck: Supple, no JVP, normal carotid upstroke bilaterally, no lymphadenopathy. Chest: Decreased breath sounds at the bases, few rhonchi, no expiratory wheezes, no chest wall tenderness, no intercostal retractions. Heart: First heart sound is normal, second heart sounds normal there is no gallop or murmur. Abdomen: Soft, nontender, nondistended, positive bowel sounds. Extremities: There is no edema no calf tenderness DP +2 bilaterally. Neurologic examination: Patient is awake alert and oriented X 3, cranial nerves II-12 appear grossly intact, muscle power were 5 out of 5 in upper extremities and 5 out of 5 in bilateral lower extremities, deep tendon reflexes normal bilaterally. Skin examination: There is non-blanchable purpura on the face upper extremity his lower extremity is as well as her abdomen is also mucosal lesions on the right buccal area ASSESSMENT AND PLAN: 1. 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 Continue patient on Solu-Medrol 250 mg IV piggyback every 6 hours and transition to prednisone 60 mg orally once every day in a.m., patient did receive IVIG as well, monitor the patient. Count, transfuse for platelets less than 10,000 in case of bleeding. Avoid NSAIDs, avoid heparin, including flushes keep the patient on bedrest. 2. Hypertension and hypertensive cardiovascular disease. Continue patient on lisinopril 2.5 mg once every day, continue amlodipine 5 mg orally once every day, continue Toprol-XL 100 mg orally twice every day. 3. Hyperlipidemia. Continue patient on atorvastatin 10 mg orally once every day. 4. Hypothyroidism. Continue patient on Synthroid 50 g orally once every day. 5. Diabetes mellitus type 2. Continue patient on metformin 250 mg orally twice every day, continue with sliding scale insulin. 6. Migraine headaches. Stable. 7. Spondylosis of the cervical spine and lumbar spine. Continue patient on Adamant as needed as well as methocarbamol 500 mg orally 2 times every day. 8. Insomnia. Continue patient on melatonin 3 mg at bedtime as well as Restoril 15 mg at bedtime. 9. DVT prophylaxis. Bilateral knee-high THAI hose avoid heparin 10. GI prophylaxis. Continue Protonix 40 mg orally twice every day. 11. Hypokalemia. Patient will be given another potassium chloride 40 Meq 1, repeat labs and magnesium level tomorrow morning. Objective - Vital Signs Vital signs: Vital Signs Temp 97.7 F 06/04/21 04:13 Pulse 56 L 06/04/21 09:11 Resp 18 06/04/21 04:13 BP 105/56 06/04/21 09:11 Pulse Ox 94 L 06/04/21 09:11 Intake & Output 06/03/21 06/04/21 06/04/21 18:59 06:59 18:59 Intake Total 250 590 Balance 250 590 Intake: Intake, IV Titration 250 Amount methylPREDNISolone SOD 250 SUCCIN 250 mg In Sodium Chloride 0.9% 250 ml @ 250 mls/hr IVPB Q6HR [facility] Rx#:[id number] Oral 590 Other: Voiding Method Toilet Toilet Toilet # Voids 2 3 - Labs CBC & Chem 7: 06/04/21 05:31 06/04/21 05:31 Labs: Abnormal Lab Results - Last 24 Hours (Table) 06/01/21 06/03/21 06/03/21 Range/Units 08:42 12:00 17:35 RBC (4.10-5.20) X 10*6/uL Hgb (12.0-15.0) g/dL Hct (37.2-46.3) % Plt Count (140-440) X 10*3/uL Immature Gran # (0.00-0.04) X 10*3/uL Neutrophils # (1.80-7.70) X 10*3/uL Lymphocytes # (0.90-5.00) X 10*3/uL Eosinophils # (0.04-0.35) X 10*3/uL Potassium (3.5-5.5) mmol/L BUN/Creatinine Ratio (12.00-20.00) Ratio Glucose (70-110) mg/dL POC Glucose (mg/dL) 147 H 163 H (75-99) mg/dL Calcium (8.7-10.3) mg/dL Alkaline Phosphatase (41-126) U/L Albumin (3.8-4.9) g/dL Albumin/Globulin Ratio (1.60-3.17) g/dL IgG 2167.0 H (700.0-1600.0) mg/dL 06/03/21 06/04/21 06/04/21 Range/Units 20:24 05:31 05:31 RBC 3.98 L (4.10-5.20) X 10*6/uL Hgb 11.5 L (12.0-15.0) g/dL Hct 33.6 L (37.2-46.3) % Plt Count 90 L (140-440) X 10*3/uL Immature Gran # 0.08 H (0.00-0.04) X 10*3/uL Neutrophils # 8.57 H (1.80-7.70) X 10*3/uL Lymphocytes # 0.69 L (0.90-5.00) X 10*3/uL Eosinophils # 0 L (0.04-0.35) X 10*3/uL Potassium 2.7 L* (3.5-5.5) mmol/L BUN/Creatinine Ratio 37.57 H (12.00-20.00) Ratio Glucose 161 H (70-110) mg/dL POC Glucose (mg/dL) 179 H (75-99) mg/dL Calcium 8.5 L (8.7-10.3) mg/dL Alkaline Phosphatase 35 L (41-126) U/L Albumin 3.4 L (3.8-4.9) g/dL Albumin/Globulin Ratio 1.10 L (1.60-3.17) g/dL IgG (700.0-1600.0) mg/dL 06/04/21 Range/Units 06:57 RBC (4.10-5.20) X 10*6/uL Hgb (12.0-15.0) g/dL Hct (37.2-46.3) % Plt Count (140-440) X 10*3/uL Immature Gran # (0.00-0.04) X 10*3/uL Neutrophils # (1.80-7.70) X 10*3/uL Lymphocytes # (0.90-5.00) X 10*3/uL Eosinophils # (0.04-0.35) X 10*3/uL Potassium (3.5-5.5) mmol/L BUN/Creatinine Ratio (12.00-20.00) Ratio Glucose (70-110) mg/dL POC Glucose (mg/dL) 158 H (75-99) mg/dL Calcium (8.7-10.3) mg/dL Alkaline Phosphatase (41-126) U/L Albumin (3.8-4.9) g/dL Albumin/Globulin Ratio (1.60-3.17) g/dL IgG (700.0-1600.0) mg/dL
[2021-06-04] MEDS: POTASSIUM CHLORIDE 20 MEQ in WATER FOR INJECTION 1 100ML.BAG IVPB SCH ×2 (11:25→13:39)
[2021-06-04 11:44] LABS: APTT 36 Sec(s) (<43); Dilute Russell Viper Venom 39 Sec(s) (<44)
[2021-06-04 12:17] LABS: Glucose,Whole Blood 178 mg/dL (75-99)
[2021-06-04] MEDS: amLODIPine 5 MG TAB PO SCH (13:38)
[2021-06-04 16:41] LABS: Cardiolipin Ab IgG Interp NEGATIVE (NEGATIVE); Cardiolipin Ab IgM Interp NEGATIVE (NEGATIVE); Cardiolipin IgA Antibody <2.0 U/mL; Cardiolipin IgM Antibody <1.5 U/mL
[2021-06-04 17:05] LABS: Glucose,Whole Blood 153 mg/dL (75-99)
[2021-06-04] MEDS ORDERED: POTASSIUM CHLORIDE ER 20 MEQ TAB.ER PO STA (19:18)
[2021-06-04 19:53] LABS: Glucose,Whole Blood 194 mg/dL (75-99)
[2021-06-04] MEDS: LATANOPROST 0.005% OPHTH DROPS 2.5 ML BTL BOTH EYES SCH (20:27)
[2021-06-04] MEDS: TEMAZEPAM 15 MG CAP PO SCH (21:54)
[2021-06-05 07:00] LABS: Glucose,Whole Blood 97 mg/dL (75-99)
[2021-06-05] MEDS: INSULIN ASPART (NovoLOG) 100 UNIT/ML VIAL SQ SCH ×2 (07:07→13:23)
[2021-06-05] MEDS: amLODIPine 5 MG TAB PO SCH (08:31)
[2021-06-05] MEDS: predniSONE 20 MG TAB PO SCH (08:31)
[2021-06-05] MEDS: CHOLECALCIFEROL 25 MCG (1000 IU) TABLET PO SCH (08:31)
[2021-06-05] MEDS: METOPROLOL SUCCINATE (ER) 100 MG TAB.ER.24H PO SCH (08:31)
[2021-06-05] MEDS: metFORMIN 500 MG TAB PO SCH (08:31)
[2021-06-05] MEDS: PANTOPRAZOLE 40 MG TABLET PO SCH (08:32)
[2021-06-05] MEDS: LACTOBACILLUS ACIDOPH & BULGAR 1 EACH PACKET PO SCH (08:32)
[2021-06-05] MEDS: CHLORTHALIDONE 25 MG TAB PO SCH (08:32)
[2021-06-05] MEDS: LEVOTHYROXINE 50 MCG TAB PO SCH (08:32)
[2021-06-05] MEDS: ATORVASTATIN 10 MG TAB PO SCH (08:32)
[2021-06-05 09:41] LABS: African American GFR (CKD) 105.5 (60.0-200.0); Albumin 3.5 g/dL (3.8-4.9); Albumin/Globulin Ratio 1.13 (1.60-3.17); Anion Gap 10.4 mmol/L (10.00-18.00); BUN/Creat Ratio 40.67 Ratio (12.00-20.00); Blood Urea Nitrogen 24.4 mg/dL (9.0-27.0); Calcium 8.7 mg/dL (8.7-10.3); Carbon Dioxide 28.6 mmol/L (20.0-27.5); Globulin 3.1 g/dL (1.6-3.3); Non-African American GFR(CKD) 91.1 (60.0-200.0); Potassium 3.6 mmol/L (3.5-5.5); Total Bilirubin 0.8 mg/dL (0.30-1.20); Total Protein 6.6 g/dL (6.2-8.2)
--- NOTE | 2021-06-05 11:13 | P.PN ---
Subjective Progress Note Date: 06/05/21 Principal diagnosis: ITP In f/u pt denies bleeding, she is tolerating steroids, she has been started on oral. She notes joint pain in the hands that started about the same time as all her other c/o and plt drop. Plt 90,000 yesterday Objective - Vital Signs Vital signs: Vital Signs Temp 97.8 F 06/05/21 04:29 Pulse 73 06/05/21 08:30 Resp 18 06/05/21 04:29 BP 155/76 06/05/21 08:30 Pulse Ox 96 06/05/21 04:29 Intake & Output 06/04/21 06/05/21 06/05/21 18:59 06:59 18:59 Intake Total 200 590 Balance 200 590 Intake: Intake, IV Titration 200 Amount Potassium Chloride 20 meq 200 In Water For Injection 1 100ml.bag @ 50 mls/hr IVPB Q2H [facility] Rx#: [id number] Oral 590 Other: Voiding Method Toilet Toilet # Voids 1 2 - Constitutional General appearance: Present: average body habitus, cooperative, no acute distress - EENT Eyes: Present: anicteric sclerae, EOMI ENT: Present: hearing grossly normal - Respiratory Details: resp even and unlabored - Integumentary Integumentary Comment(s): no petechiae or ecchymosis on visible skin - Neurologic Neurologic: Present: CNII-XII intact - Musculoskeletal Musculoskeletal: Present: strength equal bilaterally - Psychiatric Psychiatric: Present: A&O x's 3, appropriate affect, intact judgment & insight - Labs CBC & Chem 7: 06/04/21 05:31 06/05/21 06:12 Labs: Abnormal Lab Results - Last 24 Hours (Table) 06/04/21 06/04/21 06/04/21 Range/Units 10:02 12:06 17:01 Potassium 2.5 L* (3.5-5.1) mmol/L Carbon Dioxide (20.0-27.5) mmol/L BUN/Creatinine Ratio (12.00-20.00) Ratio POC Glucose (mg/dL) 178 H 153 H (75-99) mg/dL Alkaline Phosphatase (41-126) U/L Albumin (3.8-4.9) g/dL Albumin/Globulin Ratio (1.60-3.17) g/dL 06/04/21 06/05/21 Range/Units 19:48 06:12 Potassium (3.5-5.1) mmol/L Carbon Dioxide 28.6 H (20.0-27.5) mmol/L BUN/Creatinine Ratio 40.67 H (12.00-20.00) Ratio POC Glucose (mg/dL) 194 H (75-99) mg/dL Alkaline Phosphatase 35 L (41-126) U/L Albumin 3.5 L (3.8-4.9) g/dL Albumin/Globulin Ratio 1.13 L (1.60-3.17) g/dL Assessment and Plan (1) ITP secondary to infection Narrative/Plan: Plt have improved with steroids. Taper has been sent to pt preferred Pharmacy along with PPI prophylaxis while on steroids Dr. Javed reviewed pathology of immune thrombocytopenic purpura. It is possible that the condition may resolve with just steroid treatment, it may or may not return. All pt questions were answered to her satisfaction. F/U with [facility] [facility] in ofc next week for CBC Her joint c/o may be autoimmune in nature as well. Will see how this progresses and make further referrals if necessary Current Visit: Yes Status: Acute Priority: High Code(s): D69.3 - IMMUNE THROMBOCYTOPENIC PURPURA SNOMED Code(s): 3208680 Plan: Doctor attests: I performed a history and physical examination of this patient, developed impression and plan of care, discussed with dictator. I agree with dictators note, documented as a scribe.
[2021-06-05 11:21] LABS: Basophils # (A) 0.02 X 10*3/uL (0.00-0.10); Basophils % (A) 0.2 %; Eosinophils # (A) 0.02 X 10*3/uL (0.04-0.35); Eosinophils % (A) 0.2 %; HCT 36.3 % (37.2-46.3); HGB 12.2 g/dL (12.0-15.0); Immature Grans, Automated 2.1 %; Lymphocytes # (A) 1.58 X 10*3/uL (0.90-5.00); Lymphocytes % (A) 19.4 %; MCH 28.8 pg (27.0-32.0); MCHC 33.6 g/dL (32.0-37.0); MCV 85.8 fL (80.0-97.0); Mean Platelet Volume 10.5 fL (9.5-12.2); Monocytes # (A) 0.61 X 10*3/uL (0.20-1.00); Monocytes % (A) 7.5 %; NRBC Per 100 WBC 0 /100 WBCS (0.0-0.0); Neutrophils # (A) 5.76 X 10*3/uL (1.80-7.70); Neutrophils % (A) 70.6 %; Platelet Count 144 X 10*3/uL (140-440); RBC 4.23 X 10*6/uL (4.10-5.20); RDW 12.6 % (11.5-14.5); WBC 8.16 X 10*3/uL (4.50-10.00)
[2021-06-05 11:28] LABS: Glucose,Whole Blood 144 mg/dL (75-99)
[2021-06-05 11:34] VITALS: BP 115/73; PULSE 59; RESP 16; TEMP 97.9
[2021-06-05 14:13] LABS: Albumin 3.51 g/dL (3.80-4.90); Gamma Globulin 1.99 g/dL (0.70-1.50)
[2021-06-06 09:39] LABS: Free Kappa Lt Chain Qnt, Serum 1.11 mg/dL (0.33-1.94); Free Lambda Lt Chain Qnt, Seru 1.43 mg/dL (0.57-2.63)
== END 2021-06-05 14:11 | disposition home or self-care (01) | DRG 813 ==
LOC: EC 20:05 → 5NMEDONC 22:02
PROVIDERS: ADMIT Internal Medicine; ATTEND Internal Medicine
DX: D69.3 Immune thrombocytopenic purpura (principal); B97.4 Respiratory syncytial virus as the cause of diseases classified elsewhere; I11.9 Hypertensive heart disease without heart failure; E11.9 Type 2 diabetes mellitus without complications; E03.9 Hypothyroidism, unspecified; E55.9 Vitamin D deficiency, unspecified; D72.829 Elevated white blood cell count, unspecified; Z20.822 Contact with and (suspected) exposure to COVID-19; E87.6 Hypokalemia; I34.1 Nonrheumatic mitral (valve) prolapse; E78.5 Hyperlipidemia, unspecified; G47.00 Insomnia, unspecified; M47.812 Spondylosis without myelopathy or radiculopathy, cervical region; M47.816 Spondylosis without myelopathy or radiculopathy, lumbar region; M79.642 Pain in left hand; M79.641 Pain in right hand; E66.9 Obesity, unspecified; Z68.29 Body mass index [BMI] 29.0-29.9, adult; Z79.890 Hormone replacement therapy; Z79.84 Long term (current) use of oral hypoglycemic drugs; Z79.899 Other long term (current) drug therapy; Z87.442 Personal history of urinary calculi; Z86.19 Personal history of other infectious and parasitic diseases; Z90.49 Acquired absence of other specified parts of digestive tract; Z87.19 Personal history of other diseases of the digestive system; Z98.891 History of uterine scar from previous surgery; Z90.710 Acquired absence of both cervix and uterus; Z87.42 Personal history of other diseases of the female genital tract; Z86.69 Personal history of other diseases of the nervous system and sense organs; Z86.2 Personal history of diseases of the blood and blood-forming organs and certain disorders involving the immune mechanism; Z98.890 Other specified postprocedural states; Z88.0 Allergy status to penicillin; Z82.49 Family history of ischemic heart disease and other diseases of the circulatory system; Z83.2 Family history of diseases of the blood and blood-forming organs and certain disorders involving the immune mechanism
CPT/HCPCS: 36415; 71046; 80053; 81001; 82607; 82728; 82746; 82784; 83036; 83540; 83550; 83735; 83883; 83921; 84132; 84165; 84439; 84443; 85025; 85613; 85652; 85730; 86038; 86060; 86140; 86147; 86160; 86162; 86334; 86431; 86644; 86645; 86747; 87636; 96374; 99285

== ENCOUNTER → 2021-05-31 | Outpatient (CLI) | payer MEDICARE, BC ==
[2021-05-31 18:13] LABS: Rheumatoid Factor, Qnt <10 IU/mL (0-15)
[2021-05-31 18:22] LABS: ALT 19 U/L (8-44); AST 20 U/L (13-35); African American GFR (CKD) 99.3 (60.0-200.0); Albumin 4.4 g/dL (3.8-4.9); Albumin/Globulin Ratio 1.57 (1.60-3.17); Alkaline Phosphatase 53 U/L (41-126); BUN/Creat Ratio 20.82 Ratio (12.00-20.00); Blood Urea Nitrogen 14.7 mg/dL (9.0-27.0); Calcium 9.4 mg/dL (8.7-10.3); Carbon Dioxide 24.2 mmol/L (20.0-27.5); Chloride 103 mmol/L (96-109); Globulin 2.8 g/dL (1.6-3.3); Glucose 138 mg/dL (70-110); Non-African American GFR(CKD) 85.7 (60.0-200.0); Potassium 3.5 mmol/L (3.5-5.5); Sodium 141 mmol/L (135-145); Total Protein 7.1 g/dL (6.2-8.2)
[2021-05-31 18:25] LABS: Streptolysin O Ab(ASO) <20 IU/L (0-200)
[2021-05-31 19:10] LABS: Basophils # (A) 0.08 X 10*3/uL (0.00-0.10); Basophils % (A) 1.2 %; Eosinophils # (A) 0.39 X 10*3/uL (0.04-0.35); Eosinophils % (A) 5.9 %; HCT 41.4 % (37.2-46.3); Immature Grans, Automated 0.5 %; Lymphocytes # (A) 1.46 X 10*3/uL (0.90-5.00); MCH 28.9 pg (27.0-32.0); MCHC 33.8 g/dL (32.0-37.0); MCV 85.5 fL (80.0-97.0); Monocytes # (A) 0.36 X 10*3/uL (0.20-1.00); Monocytes % (A) 5.4 %; NRBC Per 100 WBC 0 /100 WBCS (0.0-0.0); Neutrophils # (A) 4.32 X 10*3/uL (1.80-7.70); Platelet Count 1 X 10*3/uL (140-440); RBC 4.84 X 10*6/uL (4.10-5.20); RDW 12.1 % (11.5-14.5); WBC 6.64 X 10*3/uL (4.50-10.00)
[2021-05-31 19:11] LABS: Immature Platelet Fraction 0 % (1.1-6.1)
[2021-05-31 21:03] LABS: Appearance,Urine Cloudy (Clear); Bacteria,Urine 2+ /HPF (None Seen); Bilirubin,Urine Negative (Negative); Blood,Urine Moderate (Negative); Color,Urine Yellow (Yellow); Ketones,Urine Trace mg/dL (Negative); Leukocyte Esterase,Urine Large (Negative); Nitrite,Urine Positive (Negative); Protein,Urine Negative (Negative); Specific Gravity,Urine 1.022 (1.001-1.030); Urobilinogen,Urine 0.2 (0.2,1.0)
== END | disposition home or self-care (01) ==
LOC: LABWHC1 12:23
PROVIDERS: ATTEND Internal Medicine
DX: D69.2 Other nonthrombocytopenic purpura (principal); I10 Essential (primary) hypertension; E11.9 Type 2 diabetes mellitus without complications; E03.9 Hypothyroidism, unspecified
CPT/HCPCS: 36415; 80053; 81001; 83036; 84439; 84443; 85025; 86038; 86060; 86160; 86162; 86431; 86644; 86645; 86747

== ENCOUNTER → 2021-10-05 | Outpatient (CLI) | payer MEDICARE, BC ==
[2021-10-05 15:38] LABS: ALT 15 U/L (8-44); AST 19 U/L (13-35); African American GFR (CKD) 85.4 (60.0-200.0); Albumin 4.2 g/dL (3.8-4.9); Albumin/Globulin Ratio 1.68 (1.60-3.17); Alkaline Phosphatase 57 U/L (41-126); BUN/Creat Ratio 22.88 Ratio (12.00-20.00); Blood Urea Nitrogen 18.3 mg/dL (9.0-27.0); Calcium 9.7 mg/dL (8.7-10.3); Carbon Dioxide 26.9 mmol/L (20.0-27.5); Chloride 104 mmol/L (96-109); Chol/HDL Ratio 2.97 Ratio; Globulin 2.5 g/dL (1.6-3.3); Glucose 156 mg/dL (70-110); LDL Cholesterol,Calculated 58.8 mg/dL (0.0-131.0); Non-African American GFR(CKD) 73.7 (60.0-200.0); Potassium 3.9 mmol/L (3.5-5.5); Sodium 142 mmol/L (135-145); Total Protein 6.7 g/dL (6.2-8.2)
== END | disposition home or self-care (01) ==
LOC: LABWHC1 09:20
PROVIDERS: ATTEND Internal Medicine Endocrinology, Diabetes & Metabolism
DX: E11.65 Type 2 diabetes mellitus with hyperglycemia (principal)
CPT/HCPCS: 36415; 80053; 80061; 82043; 82570; 83036; 84443

== ENCOUNTER → 2022-04-16 | Outpatient (CLI) | payer MEDICARE, BC ==
--- NOTE | 2022-04-16 10:46 | BD ---
EXAMINATION TYPE: Axial Bone Density DATE OF EXAM: 04/16/2022 COMPARISON: NONE CLINICAL HISTORY: 71 years year old Female. ICD-10 CODE: M85.851 DISORDER OF BONE DENSITY Height: 5'1 Weight: 157 FRAX RISK QUESTIONS: Secondary Osteoporosis: RISK FACTORS HISTORY OF: Diet low in dairy products/other sources of calcium: y Postmenopausal woman: y MEDICATIONS: Thyroid Medications: Which medication: synthroid How Lon years Additional Medications: chlorthalidone,metoporl,metforim,lisinopril,simvastin,allopurinol Additional History: EXAM MEASUREMENTS: Bone mineral densitometry was performed using the [employer] System. Bone mineral density as measured about the Lumbar spine is: ----- L1-L4(G/cm2): 1.071 T Score Values are as follows: ----- L1: -1.8 ----- L2: -1.2 ----- L3: -0.7 ----- L4: -0.4 ----- L1-L4: -0.9 Bone mineral density about the R hip (g/cm2): 0.774 Bone mineral density about the L hip (g/cm2):0.830 T Score values are as follows: -----R Neck: -1.9 -----L Neck: -1.5 -----R Total: -0.7 -----L Total: -0.5 FRAX%s: The graph provided illustrates a 12.0% chance for a major osteoporotic fx and a 2.6% chance f or the hips probability for fx in 10 years time. IMPRESSION: Osteopenia (T Score between -2.5 and -1). There is slightly increased risk of fracture and the patient may be considered for treatment. Re-Screen 2-5 years. NOTE: T-SCORE=SD OF THE YOUNG ADULT MEAN.
--- NOTE | 2022-04-17 09:06 | MM ---
Reason for Exam: Screening (asymptomatic). Last mammogram was performed 1 year(s) and 9 month(s) ago. Patient History: Menarche at age 11. First Full-Term at age 18. Left ovary removed at age 52. Right ovary removed at age 52. Hysterectomy at age 52. Postmenopausal. 2000, Bilateral Reduction. 11/18/2019, Benign Cyst Aspiration on the right side. 01/04/2013, Benign Core Biopsy on the left side. Maternal grandmother had breast cancer, age 56. Risk Values: Chen 5 year model risk: 1.9%. NCI Lifetime model risk: 4.6%. Prior Study Comparison: 11/05/2019 Right Diagnostic Mammogram, [facility]. 11/18/2019 Right Diagnostic Mammogram, [facility]. 07/03/2020 Bilateral Screening Mammogram, [facility]. Tissue Density: The breast tissue is heterogeneously dense. This may lower the sensitivity of mammography. Findings: Analyzed By CAD. Bilateral biopsy clips. There is no suspicious group of microcalcifications or new suspicious mass in either breast. Overall Assessment: Negative, BI-RAD 1 Management: Screening Mammogram of both breasts in 1 year. A clinical breast exam by your physician is recommended on an annual basis and results should be correlated with mammographic findings. [facility] will attempt to contact patient to return for supplemental views and ultrasound if indicated. Electronically signed and approved by: Eliot Marley DO
== END | disposition home or self-care (01) ==
LOC: RADMAMWWP 06:56
PROVIDERS: ATTEND Internal Medicine
DX: Z12.31 Encounter for screening mammogram for malignant neoplasm of breast (principal); M85.89 Other specified disorders of bone density and structure, multiple sites; Z78.0 Asymptomatic menopausal state; Z80.3 Family history of malignant neoplasm of breast
CPT/HCPCS: 77063; 77067; 77080

== ENCOUNTER → 2023-04-17 | Outpatient (CLI) | payer MEDICARE, BC ==
--- NOTE | 2023-04-18 20:05 | MM ---
Reason for Exam: Screening (asymptomatic). Last screening mammogram was performed 12 month(s) ago. Patient History: Menarche at age 11. First Full-Term at age 18. Left ovary removed at age 52. Right ovary removed at age 52. Hysterectomy at age 52. Postmenopausal. Patient has history of breast feeding. 2000, Bilateral Reduction. 11/18/2019, Benign Cyst Aspiration on the right side. 01/04/2013, Benign Core Biopsy on the left side. Maternal grandmother had breast cancer, age 56. Risk Values: Chen 5 year model risk: 1.9%. NCI Lifetime model risk: 4.3%. Prior Study Comparison: 02/27/2016 Screening Mammogram, Unknown. 02/19/2017 Bilateral Screening Mammogram, [facility]. 04/06/2018 Bilateral Screening Mammogram, [facility]. 04/21/2019 Bilateral Screening Mammogram, [facility]. 05/04/2019 Right Diagnostic Mammogram, [facility]. 11/05/2019 Right Diagnostic Mammogram, [facility]. 11/18/2019 Right Diagnostic Mammogram, [facility]. 07/03/2020 Bilateral Screening Mammogram, [facility]. 04/16/2022 Bilateral MG 3D screening mammo w/cad, [facility]. Tissue Density: There are scattered fibroglandular densities. Findings: Analyzed By CAD. Microclip right breast from prior biopsy. Benign oil cyst and round calcifications are redemonstrated. Unchanged asymmetric density inferior right MLO view. There is no suspicious group of microcalcifications or new suspicious mass in either breast. Overall Assessment: Benign, BI-RAD 2 Management: Screening Mammogram of both breasts in 1 year. . Patient should continue monthly self-breast exams. A clinical breast exam by your physician is recommended on an annual basis. This exam should not preclude additional follow-up of suspicious palpable abnormalities. Note on Chen scores and lifetime risk: 1. A Chen score greater than 3% is considered moderate risk. If this is the case, consider specialist referral to assess eligibility for a risk reducing agent. 2. If overall lifetime risk for the development of breast cancer is 20% or higher, the patient may qualify for future screening with alternating mammogram and breast MRI. Electronically signed and approved by: Ghislaine Mae M.D. Radiologist
== END | disposition home or self-care (01) ==
LOC: RADMAMWWP 09:35
PROVIDERS: ATTEND Internal Medicine
DX: Z12.31 Encounter for screening mammogram for malignant neoplasm of breast (principal); Z80.3 Family history of malignant neoplasm of breast; Z78.0 Asymptomatic menopausal state
CPT/HCPCS: 77063; 77067

== ENCOUNTER → 2024-07-14 | Outpatient (CLI) | payer MEDICARE, BC ==
--- NOTE | 2024-07-14 11:01 | MM ---
Reason for Exam: Screening (asymptomatic). Last mammogram was performed 1 year(s) and 3 month(s) ago. Patient History: Menarche at age 11. First Full-Term at age 18. Left ovary removed at age 52. Right ovary removed at age 52. Hysterectomy at age 52. Postmenopausal. Patient has history of breast feeding. 2000, Bilateral Reduction. 11/18/2019, Benign Cyst Aspiration on the right side. 01/04/2013, Benign Core Biopsy on the left side. Maternal grandmother had breast cancer, age 56. Risk Values: Chen 5 year model risk: 1.9%. NCI Lifetime model risk: 4.0%. Prior Study Comparison: 07/03/2020 Bilateral Screening Mammogram, [facility]. 04/16/2022 Bilateral MG 3D screening mammo w/cad, [facility]. 04/17/2023 Bilateral MG 3D screening mammo w/cad, [facility]. Tissue Density: There are scattered areas of fibroglandular density. Findings: Analyzed By CAD. There is no suspicious group of microcalcifications or new suspicious mass in either breast. Overall Assessment: Benign, BI-RAD 2 Management: Screening Mammogram of both breasts in 1 year. . Patient should continue monthly self-breast exams. A clinical breast exam by your physician is recommended on an annual basis. This exam should not preclude additional follow-up of suspicious palpable abnormalities. Note on Chen scores and lifetime risk: 1. A Chen score greater than 3% is considered moderate risk. If this is the case, consider specialist referral to assess eligibility for a risk reducing agent. 2. If overall lifetime risk for the development of breast cancer is 20% or higher, the patient may qualify for future screening with alternating mammogram and breast MRI. [facility], , 07/14/2024 9:11 AM. Electronically signed and approved by: Antonio Sarmineto M.D. Radiologis
--- NOTE | 2024-07-14 12:10 | BD ---
EXAMINATION TYPE: Axial Bone Density DATE OF EXAM: 07/14/2024 CLINICAL HISTORY: 73 years old Female. ICD-10 CODE: M85.851 OTH DISRD OF BONE DENSITY , Additional H istory: Height: 5 ft Weight: 143 FRAX RISK QUESTIONS: Alcohol (3 or more units per day): no Family History (Parent hip fracture): no Glucocorticoids (More than 3mos): no (Ex: prednisone, prednisolone, methylprednisolone, dexamethasone, and hydrocortisone). History of Fracture in Adulthood: yes Secondary Osteoporosis: 1. Type 1 Diabetes: type 2 2. Hyperthyroidism: no 3. Menopause before 45: no 4. Malnutrition: no 5. Chronic liver disease: no Rheumatoid Arthritis: no Current Tobacco Use: no RISK FACTORS HISTORY OF: Surgery to Spine/Hip(right/left)/Wrist (right/left): no MEDICATIONS: Thyroid Medications: none Osteoporosis Medications: none EXAM MEASUREMENTS: Bone mineral densitometry was performed using the [employer] System. Bone mineral density as measured about the Lumbar spine is: ----- L1-L4(G/cm2): 1.114 T Score Values are as follows: ----- L1: -1.7 ----- L2: -0.7 ----- L3: -0.3 ----- L4: 0.2 ----- L1-L4: -0.6 Z Score Values are as follows: ----- L1: 0.1 ----- L2: 1.1 ----- L3: 1.5 ----- L4: 2.0 ----- L1-L4: 1.2 Bone mineral density has: increased 6.5 % since study of: 2022 Bone mineral density about the R hip (g/cm2): 0.729 Bone mineral density about the L hip (g/cm2): 0.752 T Score values are as follows: -----R Neck: -2.2 -----L Neck: -2.1 -----R Total: -1.5 -----L Total: -0.9 Z Score values are as follows: -----R Neck: -0.3 -----L Neck: -0.1 -----R Total: 0.3 -----L Total: 0.9 Bone mineral density has: decreased -8.8 % since study of: 2022 FRAX%s: The graph provided illustrates a 14.9 % chance for a major osteoporotic fx and a 4.3 % chance for the hips probability for fx in 10 years time. IMPRESSION: Osteopenia (T Score between -2.5 and -1). There is slightly increased risk of fracture and the patient may be considered for treatment. Re-Screen 2-5 years. NOTE: T-SCORE=SD OF THE YOUNG ADULT MEAN. [facility], , 07/14/2024 12:07 PM
== END | disposition home or self-care (01) ==
LOC: RADBDWWP 08:55
PROVIDERS: ATTEND Internal Medicine
DX: Z12.31 Encounter for screening mammogram for malignant neoplasm of breast (principal); R92.323 Mammographic fibroglandular density, bilateral breasts; M85.89 Other specified disorders of bone density and structure, multiple sites; Z78.0 Asymptomatic menopausal state; Z80.3 Family history of malignant neoplasm of breast
CPT/HCPCS: 77063; 77067; 77080

== ENCOUNTER → 2024-09-22 | Outpatient (CLI) | payer MEDICARE, BC ==
[2024-09-22 19:31] LABS: Basophils # (A) 0.09 X 10*3/uL (0.00-0.10); Basophils % (A) 1.1 %; Eosinophils # (A) 0.32 X 10*3/uL (0.04-0.35); Eosinophils % (A) 4.1 %; HCT 42.8 % (37.2-46.3); HGB 14.2 g/dL (12.0-15.0); Lymphocytes # (A) 1.84 X 10*3/uL (0.90-5.00); Lymphocytes % (A) 23.4 %; MCH 28.8 pg (27.0-32.0); MCHC 33.2 g/dL (32.0-37.0); MCV 86.8 FL (80.0-97.0); Mean Platelet Volume 9.7 FL (9.5-12.2); Monocytes # (A) 0.65 X 10*3/uL (0.20-1.00); Monocytes % (A) 8.3 %; NRBC Per 100 WBC 0 X 10*3/uL (0.00-0.01); Neutrophils # (A) 4.91 X 10*3/uL (1.80-7.70); Neutrophils % (A) 62.6 %; Platelet Count 241 X 10*3/uL (140-440); RBC 4.93 X 10*6/uL (4.10-5.20); RDW 12.9 % (11.5-14.5); WBC 7.85 X 10*3/uL (4.50-10.00)
[2024-09-22 19:46] LABS: % Iron Saturation 28.65 (12.00-45.00); Ferritin 84.1 ng/mL (10.0-291.0); Reticulocyte % 1.85 % (0.10-1.80)
[2024-09-22 20:57] LABS: Appearance,Urine Cloudy (Clear); Bilirubin,Urine Small (Negative); Blood,Urine Negative (Negative); Color,Urine Dark Yellow (Yellow); Ketones,Urine Trace (Negative); Nitrite,Urine Positive (Negative); PH, Urine 5.5; Specific Gravity,Urine 1.021 (1.001-1.030)
[2024-09-22 21:19] LABS: Bacteria,Urine 3+ (None Seen); Calcium Oxalate Crystals,Urine Present (None Seen)
== END | disposition home or self-care (01) ==
LOC: LABWHC1 15:10
PROVIDERS: ATTEND Internal Medicine
DX: D69.3 Immune thrombocytopenic purpura (principal); R35.0 Frequency of micturition
CPT/HCPCS: 36415; 81001; 82607; 82728; 82746; 83010; 83540; 83550; 83615; 85025; 85045; 85379